=== PATIENT | female | born 1980 | race Caucasian/White ===

== ENCOUNTER 2024-05-28 23:27 | Outpatient (CLI) | payer BC, SELFPAY | END 2024-05-28 23:28 | disposition home or self-care (01) | LOC: AMB 06-01 04:19 | PROVIDERS: Visit Provider Internal Medicine | DX: R41.82 Altered mental status, unspecified (principal) | CPT/HCPCS: A0425; A0427 ==

== ENCOUNTER 2024-05-28 23:54 | Emergency (ER) | payer BC, SELFPAY ==
[2024-05-29] VITALS (15 sets, daily range): BP systolic 95–121; BP diastolic 52–74; PULSE 60–89; RESP 13–22; TEMP 36–37; O2SAT 88–99
[2024-05-29] MEDS: 0.9 % SODIUM CHLORIDE 1000 ml 1,000 ML IV (00:01)
--- NOTE | 2024-05-29 00:12 | CRLHL7_ITS ---
For Patients: As a result of the Cures Act, medical imaging exams and procedure reports are released immediately into your electronic medical record. You may view this report before your referring provider. If you have questions, please contact your health care provider. Indication: Altered mental status Technique: Noncontrast CT through the head with multiplanar reformats Comparison: None Findings: Brain: No acute hemorrhage. No acute infarct. No significant mass effect or midline shift. No gross evidence of a mass lesion or cerebral edema. Ventricles: No acute abnormality appreciated. Orbits, sinuses, mastoids: No acute abnormality appreciated. Calvarium and soft tissues: No acute abnormality appreciated. Impression: No acute abnormality appreciated. Please note that all CT scans at this facility use dose modulation, iterative reconstruction, and/or weight-based dosing when appropriate to reduce radiation dose to as low as reasonably achievable. Dictated by Jase Ochoa MD @ 05/29/2024 1:29:35 AM (Electronically Signed)
--- NOTE | 2024-05-29 00:20 | ED_ITS ---
HPI - Altered Mental Status General Chief Complaint: Altered Mental Status Stated Complaint: Syncope Time Seen by Provider: 05/29/24 00:12 Source: EMS Mode of arrival: EMS Limitations: altered mental status History of Present Illness HPI narrative: Patient is a 44-year-old female brought in by EMS for altered mental status. EMS was called to scene and they state when they arrived family was doing CPR because she was not responsive and they were concerned she was having a cardiac arrest. Patient was obtunded but was not in cardiac arrest. They are unsure how long they were doing CPR for. EMS states she was hypotensive for them but had a normal pulses and was satting well on room air. Blood sugar was 96 when they arrived. She was brought to the [facility] at this time and was given Narcan immediately. Her family then arrived and Her states she woke up from a cramping sensation in her legs. He states they were sleeping when he noticed she was nonresponsive. EMS states when they arrived the patient was being held up in the garage by family members who they described as amped up. They were not allowed to go into the house. They were told by a family hours the patient was having leg cramps earlier so she took some her tizanidine to help. Of note EMS states that his residence is the home of a gang member. Related Data Home Medications ?Medication ?Instructions ?Recorded ?Confirmed diazepam 10 mg tablet 10 mg PO DAILY PRN 05/29/24 05/29/24 duloxetine 30 mg capsule,delayed 60 mg PO DAILY 05/29/24 05/29/24 release (Cymbalta) gabapentin 300 mg capsule 900 mg PO TID 05/29/24 05/29/24 hydrochlorothiazide 25 mg tablet 12.5 mg PO DAILY 05/29/24 05/29/24 lamotrigine 100 mg tablet 100 mg PO DAILY 05/29/24 05/29/24 (Lamictal) quetiapine 200 mg tablet 200 mg PO QHS 05/29/24 05/29/24 tizanidine 2 mg capsule 2 mg PO TID PRN 05/29/24 05/29/24 tretinoin 0.1 % topical cream 1 applic topical QHS 05/29/24 05/29/24 (Retin-A) Allergies Allergy/AdvReac Type Severity Reaction Status Date / Time No Known Drug Allergies Allergy Verified 05/29/24 00:19 Review of Systems Status of ROS: Reports: unobtainable due to mental status PFSH [facility] Social History How often do you have a drink containing alcohol: never AUDIT-C Alcohol total score: 0 Non-prescribed substance use: marijuana (any form) Exam Narrative: Exam Narrative: Const: Well-nourished, Well-developed, somnolent Eyes: PERRL, no conjunctival injection, and symmetrical lids HENT: Atraumatic external nose and ears. Moist mucous membranes. No hemotympanum Neck: Symmetric, trachea midline, No thyromegaly. CVS: RRR, No murmurs or gallops. Peripheral pulses 2+ and equal in all extremities RESP: Unlabored respiratory effort. Clear to auscultation bilaterally. GI: Nontender/Nondistended, No rebound or guarding. MSK:Extremities w/o deformity, no tenderness to palpation noted throughout Skin: Warm, Dry. No rashes or lesions. Neuro: Normal Muscle tone, No focal neurological deficits but difficulty to fully determine neurological status as she is relatively somnolent and not following all commands. GCS 13 Psych: Somnolent but will wake up slightly when staff interactions her Const: Vital Signs, click to edit/add: Vital Signs - 24 hr 05/29/24 00:00 05/29/24 00:09 05/29/24 00:10 Temperature 96.8 F L Pulse Rate 68 Pulse Rate [Pulse Oximeter] 65 Respiratory Rate 14 20 22 Blood Pressure 95/55 L Blood Pressure [Le ft Upper Arm] 99/52 L Pulse Oximetry 93 95 Oxygen Delivery Me thod Room Air Oxygen Flow Rate 05/29/24 00:12 05/29/24 00:15 05/29/24 00:22 Temperature Pulse Rate 69 71 65 Pulse Rate [Pulse Oximeter] Respiratory Rate 20 13 17 Blood Pressure 98/58 L 108/67 Blood Pressure [Le ft Upper Arm] Pulse Oximetry 93 88 99 Oxygen Delivery Me thod Oxygen Flow Rate 1 05/29/24 00:23 05/29/24 00:28 05/29/24 00:30 Temperature Pulse Rate 62 60 Pulse Rate [Pulse Oximeter] Respiratory Rate 17 16 Blood Pressure Blood Pressure [Le ft Upper Arm] Pulse Oximetry 98 97 98 Oxygen Delivery Me thod Nasal Cannula Oxygen Flow Rate 1 05/29/24 00:30 05/29/24 00:34 05/29/24 00:45 Temperature Pulse Rate 64 Pulse Rate [Pulse Oximeter] 73 Respiratory Rate 14 14 Blood Pressure 110/74 Blood Pressure [Le ft Upper Arm] 121/69 Pulse Oximetry 94 98 Oxygen Delivery Me thod Room Air Oxygen Flow Rate 05/29/24 00:45 05/29/24 00:52 05/29/24 00:55 Temperature Pulse Rate 68 Pulse Rate [Pulse Oximeter] 67 Respiratory Rate 14 Blood Pressure 121/69 Blood Pressure [Le ft Upper Arm] 99/67 Pulse Oximetry 94 96 Oxygen Delivery Me thod Room Air Room Air Oxygen Flow Rate 05/29/24 01:00 05/29/24 05:56 Temperature 97.6 F Pulse Rate Pulse Rate [Pulse Oximeter] 72 81 Respiratory Rate 14 16 Blood Pressure Blood Pressure [Le ft Upper Arm] 115/71 110/62 Pulse Oximetry 94 96 Oxygen Delivery Me thod Room Air Room Air Oxygen Flow Rate Course Vital Signs Vital signs: Initial Vital Signs Temperature 96.8 F L 05/29/24 00:00 Temperature Source Temporal Artery Scan 05/29/24 00:00 Pulse Rate 65 05/29/24 00:00 Respiratory Rate 14 05/29/24 00:00 Blood Pressure 99/52 L 05/29/24 00:00 Blood Pressure Mean 67 L 05/29/24 00:00 Blood Pressure Position Supine 05/29/24 00:00 Pulse Oximetry 93 05/29/24 00:00 Oxygen Delivery Method Room Air 05/29/24 00:00 Vital Signs Temperature 96.8 F L 05/29/24 00:00 Pulse Rate 65 05/29/24 00:00 Respiratory Rate 14 05/29/24 00:00 Blood Pressure 99/52 L 05/29/24 00:00 Pulse Oximetry 93 05/29/24 00:00 Oxygen Delivery Method Room Air 05/29/24 00:00 Temperature 97.6 F 05/29/24 01:00 Pulse Rate 81 05/29/24 05:56 Respiratory Rate 16 05/29/24 05:56 Blood Pressure 110/62 05/29/24 05:56 Pulse Oximetry 96 05/29/24 05:56 Oxygen Delivery Method Room Air 05/29/24 05:56 Oxygen Flow Rate 1 05/29/24 00:28 Medications Administered Medications: Discontinued Medications Generic Name Dose Route Start Last Admin Trade Name Manish PRN Reason Stop Dose Admin Acetaminophen 1,000 mg 05/29/24 06:12 05/29/24 06:31 Acetaminophen 500 Mg Tablet PO 05/29/24 06:13 1,000 mg ONCE ONE Administration Sodium Chloride 1,000 mls @ 1,000 mls/hr 05/29/24 00:15 05/29/24 00:51 0.9 % Sodium Chloride 1000 Ml IV 05/29/24 01:14 Infused .Q1H SKY Infusion Naloxone HCl 0.4 mg 05/29/24 00:15 05/28/24 23:59 Naloxone 0.4 Mg/Ml Inj IVP 05/29/24 00:16 0.4 mg ONCE ONE Administration Naloxone HCl 0.4 mg 05/29/24 00:16 05/29/24 00:16 Naloxone 0.4 Mg/Ml Inj IVP 05/29/24 00:17 0.4 mg ONCE ONE Administration MDM - Altered Mental Status MDM Narrative Medical decision making narrative: Patient is a 44-year-old female presenting to the emergency department for altered mental status. When she 1st arrived she was hypotensive and was given a L of normal saline with a pressure bag. She received 700 mL of normal saline via EMS prior to arrival. She is also given Narcan immediately. After the Narcan she began to wake up more and was able to answer a couple questions but was still pretty sleepy. Point of care blood sugar in ED was 87. She was able to tell is that the soot on her right hand is from her incense. The soot appears more tarry than would be expected. She is also open her eyes by herself slightly and response to pain. Full exam was done showing no obvious signs of trauma at this time. She is finally stable at this time and will go for head CT. Wheeled do a broad workup including CBC, CMP, urinalysis, urine drug screen, magnesium. Patient did start desat slightly before CT scan and another dose of Narcan was g iven and she began to wake up even more. Lab work returned showing no concerning abnormalities. Her vital signs were improving after the 2nd dose of Narcan. EKG shows no concerning abnormalities. Urine drug screen shows tricyclic antidepressants, benzodiazepines, marijuana. She is prescribed these medications other than marijuana. Did not test positive for opioids but it is important to note that fentanyl can be a false negative. Lab work all returned showing no concerning abnormalities. She is more awake now starting at about 05:00. She is answering all questions appropriately but states she does not remember what happened at all. We continue to monitor her for a total of 7 hours and she is feeling much better at this time. She has all bit tired but is able to ambulate around the department without issue. I am unsure what caused this episode but do believe she is safe for discharge at this time to the care of her . She is agreeable to this plan. Lab Data Labs: Lab Results 05/29/24 05/29/24 05/29/24 Range/Units 00:00 00:00 00:12 WBC 6.99 (4.50-11.00) K/uL RBC 3.79 L (4.00-5.20) m/uL Hgb 10.6 L (12.0-16.0) gm/dL Hct 33.4 (33.0-51.0) % MCV 88 (80-100) fL MCH 28 (26-34) pg MCHC 32 (32-36) gm/dL RDW Coeff of Yan 13.8 (11.5-15.5) % Plt Count 196 (140-440) K/uL Neut % (Auto) 52.9 (42.0-72.0) % Lymph % (Auto) 36.2 (20-44) % [place] % (Auto) 9.2 (0.0-11.0) % Eos % (Auto) 0.7 (0.0-7.0) % Baso % (Auto) 0.3 (0.0-3.0) % Neut # (Auto) 3.70 (1.7-7.0) K/uL Lymph # (Auto) 2.53 (0.90-2.90) K/uL [place] # (Auto) 0.60 (0.00-0.90) K/UL Eos # (Auto) 0.05 (0.00-0.50) K/uL Baso # (Auto) 0.02 (0.00-0.30) K/uL Abs Immat Gran (auto) 0.05 (0.00-0.30) K/uL Imm/Tot Granulo (auto) 0.7 % VBG pH 7.35 (7.32-7.43) VBG pCO2 43 (40-50) mmHG VBG pO2 76.0 H (25-47) mmHG VBG HCO3 24 (21-28) mmol/L Sodium 135 (135-149) mmol/L Potassium 3.8 (3.6-5.1) mmol/L Chloride 107 (96-114) mmol/L Carbon Dioxide 24 (20-32) mmol/L Anion Gap 4 L (7-15) mEq/L BUN 24 (5-24) mg/dL Creatinine 1.1 (0.5-1.5) mg/dL Estimated GFR 64 ml/min Glucose 96 (60-115) mg/dL Calcium 8.3 L (8.4-10.6) mg/dL Magnesium 2.0 (1.5-2.6) mg/dL Total Bilirubin 0.3 (0.1-1.5) mg/dL AST 26 (12-35) U/L ALT 21 (4-35) U/L Alkaline Phosphatase 69 (40-150) U/L Ammonia 19.0 (13.1-30.0) umol/L Troponin I < 0.01 L (0.01-0.04) ng/mL Total Protein 5.8 L (6.0-8.3) g/dL Albumin 3.3 (3.3-5.0) g/dL TSH 0.909 (0.270-4.200) uIU/mL Urine Color Yellow (Yellow) Urine Appearance Clear (Clear) Urine pH 6.5 (5.0-8.5) Ur Specific [place] 1.020 (1.000-1.030) Urine Protein Negative (Negative) Urine Glucose (UA) Negative (Negative) Urine Ketones Negative (Negative) Urine Blood Negative (Negative) Urine Nitrite Negative (Negative) Urine Bilirubin Negative (Negative) Urine Urobilinogen 0.2 (0.2-1.0) Ur Leukocyte Esterase Negative (Negative) Urine RBC 0-2 (0-2) Urine WBC 2-5 (0-5) Ur Squamous Epith Cells Few (None-Few) Urine Bacteria None (None) Urine HCG, Qual Negative (Negative) Salicylates < 1.0 L (1.0-10) mg/dL Urine Opiates Screen Negative (Negative) Ur Oxycodone Screen Negative (Negative) Urine Methadone Screen Negative (Negative) Acetaminophen < 10.0 L (10.0-30.0) ug/mL Ur Barbiturates Screen Negative (Negative) U Tricyclic Antidepress POSITIVE A (Negative) Ur Phencyclidine Scrn Negative (Negative) Ur Amphetamines Screen Negative (Negative) U Methamphetamines Scrn Negative (Negative) U Benzodiazepines Scrn POSITIVE A (Negative) Urine Cocaine Screen Negative (Negative) U Marijuana (THC) Screen POSITIVE A (Negative) Ur Drug Screen Comment See Note Lab Acknowledgement Test Added Test Added Imaging Data CT scan - head: Attestation: I have reviewed the pertinent imaging results. Radiologist's impression: No acute abnormality appreciated. Please note that all CT scans at this facility use dose modulation, iterative reconstruction, and/or weight-based dosing when appropriate to reduce radiation dose to as low as reasonably achievable. Dictated by Jase Ochoa MD @ 05/29/2024 1:29:35 AM ECG Data Attestation: I personally reviewed and interpreted this ECG as follows: Prior ECG tracings: not available for review Interpretation: Normal sinus rhythm with rate 67 beats per minute, normal intervals, normal axis, no ST or T-wave abnormalities Discharge Plan Discharge Clinical Impression: Altered mental status Qualifiers: Altered mental status type: somnolence Qualified Code(s): R40.0 - Somnolence Patient Disposition: Home, Self-Care Condition: Improved Instructions: Altered Mental Status (ED) Additional Instructions: I have unsure what caused this episode but your lab work and head imaging all looks reassuring. Return to emergency department for new or worsening symptoms. Prescriptions: No Action quetiapine 200 mg tablet 200 mg PO QHS tizanidine 2 mg capsule 2 mg PO TID PRN hydrochlorothiazide 25 mg tablet 12.5 mg PO DAILY tretinoin [Retin-A] 0.1 % cream 1 applic topical QHS diazepam 10 mg tablet 10 mg PO DAILY PRN lamotrigine [Lamictal] 100 mg tablet 100 mg PO DAILY duloxetine [Cymbalta] 30 mg capsule,delayed release(DR/EC) 60 mg PO DAILY gabapentin 300 mg capsule 900 mg PO TID Follow Up/Referrals: Provider,Not a Local [Primary Care Provider] - Stand Alone Forms: [facility] Info Instructions
[2024-05-29 00:27] LABS: Basophils Absolute Auto 0.02 K/uL (0.00-0.30); Basophils Percent Auto 0.3 % (0.0-3.0); Eosinophils Absolute Auto 0.05 K/uL (0.00-0.50); Eosinophils Percent Auto 0.7 % (0.0-7.0); Hematocrit 33.4 % (33.0-51.0); Hemoglobin* 10.6 gm/dL (12.0-16.0); Immature Granulocytes Abs Auto 0.05 K/uL (0.00-0.30); Immature Granulocytes Pct Auto 0.7 %; Lymphocytes Absolute Auto 2.53 K/uL (0.90-2.90); Lymphocytes Percent Auto 36.2 % (20-44); Mean Corpuscular HGB Conc 32 gm/dL (32-36); Mean Corpuscular Hemoglobin 28 pg (26-34); Mean Corpuscular Volume 88 fL (80-100); Monocytes Percent Auto 9.2 % (0.0-11.0); Neutrophils Percent Auto 52.9 % (42.0-72.0); Platelet Count* 196 K/uL (140-440); RDW Coefficient of Variation % 13.8 % (11.5-15.5); Red Blood Count 3.79 m/uL (4.00-5.20); White Blood Count* 6.99 K/uL (4.50-11.00)
[2024-05-29 00:29] LABS: Appearance Urine Clear (Clear); Bilirubin Urine Negative (Negative); Blood Urine Negative (Negative); Color Urine Yellow (Yellow); Glucose Urine Negative (Negative); Ketones Urine Negative (Negative); Leukocyte Esterase Urine Negative (Negative); Nitrite Urine Negative (Negative); Protein Urine Negative (Negative); Urobilinogen Urine 0.2 (0.2-1.0); pH Urine 6.5 (5.0-8.5)
[2024-05-29 00:30] LABS: Amphetamine Screen Urine Negative (Negative); Barbiturate Screen Urine Negative (Negative); Benzodiazepines Screen Urine POSITIVE (Negative); Cannabinoid Screen Urine POSITIVE (Negative); Cocaine Screen Urine Negative (Negative); Methadone Screen Urine Negative (Negative); Methamphetamines Screen Urine Negative (Negative); Opiate Screen Urine Negative (Negative); Oxycodone Screen Urine Negative (Negative); Phencyclidine Screen Urine Negative (Negative); Tricyclic Antidepressant Urine POSITIVE (Negative)
[2024-05-29 00:37] LABS: Slide Review Reflex No
--- NOTE | 2024-05-29 00:39 | ED.NURSE ---
Tshirt and black sweatpants cut off on arrival. Gold jewelery (necklaces, bracelets, ring, earrings) removed and in labeled belongings cup. Given to patient's son for safekeeping. Patient did not arrive with any further belongings aside from prescription bottle for Tizanidine, #75 2mg tablets in bottle (prescribed 05/24/24, TID dosing). Family also in care of this prescription.
[2024-05-29 00:42] LABS: Albumin* 3.3 g/dL (3.3-5.0); Chloride* 107 mmol/L (96-114); Potassium* 3.8 mmol/L (3.6-5.1); Sodium* 135 mmol/L (135-149)
[2024-05-29 00:42] LABS: RBC Urine 0-2 (0-2); Squamous Epithelial Cell Urine Few (None-Few); Ur HCG Qualitative* Negative (Negative)
[2024-05-29 00:44] LABS: Bilirubin Total* 0.3 mg/dL (0.1-1.5); Creatinine* 1.1 mg/dL (0.5-1.5); Estimated Glomerular Filt Rate 64 ml/min
[2024-05-29 00:45] LABS: Alanine Aminotransferase* 21 U/L (4-35); Alkaline Phosphatase* 69 U/L (40-150); Anion Gap 4 mEq/L (7-15); Aspartate Amino Transferase* 26 U/L (12-35); Blood Urea Nitrogen* 24 mg/dL (5-24); Calcium* 8.3 mg/dL (8.4-10.6); Carbon Dioxide* 24 mmol/L (20-32); Glucose* 96 mg/dL (60-115); Total Protein* 5.8 g/dL (6.0-8.3)
[2024-05-29 01:01] LABS: Troponin I* < 0.01 ng/mL (0.01-0.04)
--- NOTE | 2024-05-29 01:45 | PC.NURSE ---
pt allowed to sleep. pt opens eyes to verbal but has difficulty keeping eyes open, staying awake. and son at bedside. EMS paged out and talking to physician to get more details re: call/scene.
[2024-05-29 01:52] LABS: Acetaminophen* < 10.0 ug/mL (10.0-30.0); Salicylate* < 1.0 mg/dL (1.0-10)
--- NOTE | 2024-05-29 02:16 | PC.NURSE ---
and son went home for the night, will call with any updates. Pt. continues to be oriented when woken up but difficult to keep awake and keep eyes open. Speech still slurred and difficult to make out at times. VSS, pt. does state she has some cramping in her legs which is not new.
[2024-05-29 03:46] LABS: HCO3 VBG 24 mmol/L (21-28); PCO2 VBG 43 mmHG (40-50); pH VBG 7.35 (7.32-7.43)
[2024-05-29 04:23] LABS: TSH With Reflex to FT4* 0.909 uIU/mL (0.270-4.200)
--- NOTE | 2024-05-29 05:13 | PC.NURSE ---
Pt woke up when came back. Pt states she remembers getting home from work last evening, made a yogurt parfait and drank part of a protein shake. Pt. states she took two of her muscle relaxers and went to bed. States she does smoke cannabis, denies other drug or alcohol use. Pt does not remember anything else from the night. Did not know she was in the hospital. Pt asking what happened to her. Pt. 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 She has 7 children (ages 9-19). Denies recent illness.
[2024-05-29] MEDS: ACETAMINOPHEN 500 MG TABLET 1000 MG PO (06:31)
== END 2024-05-29 06:55 | disposition home or self-care (01) ==
PROVIDERS: Emergency Provider Student in an Organized Health Care Education/Training Program
DX: R41.82 Altered mental status, unspecified (principal)
CPT/HCPCS: 36415; 70450; 80053; 80143; 80179; 80306; 81001; 81025; 82140; 82803; 83735; 84443; 84484; 85025; 93005; 96374; 96376; 99283; 99284; 99285; A9270; J2310; J7030

== ENCOUNTER 2024-07-25 19:55 | Emergency (ER) | payer BC, SELFPAY ==
[2024-07-25 19:57] VITALS: BP 178/103; PULSE 76; RESP 18; TEMP 37; O2SAT 100; BMI 28.3
[2024-07-25 19:59] LABS: Glucose, Point-of-Care* 122 mg/dl (60-115)
--- NOTE | 2024-07-25 20:59 | ED.GENADULT ---
HPI - General Adult General Time Seen by Provider: 20:59 Date Seen: 07/25/24 Chief complaint: Dizziness/Vertigo Stated complaint: Dizziness, nausea Time Seen by Provider: 07/25/24 20:58 Source: patient, RN notes reviewed and old records reviewed Mode of arrival: ambulatory Limitations: no limitations History of Present Illness HPI narrative: This 44yo female is coming in with vertigo and headache. She stated vertigo in her own words when I asked her what was bothering her today. She was driving home, started to have what she calls blurry vision and felt like she was spinning. She prefers to keep her eyes shut, prefers to be on her left side, rolling to the right makes it worse. She is hearing a ringing sensation in her right ear that will not go away. She also has a right-sided headache with this. She has a history of migraines remotely, has not had them for years. She had a gastric bypass about a year so ago. She did have hypertension prior to that but has been off medicines after the gastric bypass. Did review that her blood pressure is elevated here on arrival but she is also in the ER, having pain, having vertigo. This certainly could be affecting her blood pressure. She felt hot and nauseous once the symptoms started, is having ongoing nausea. Nursing staff did check a glucose in triage, was 122. She denies any chest symptoms with this, no chest pain. She notes no incoordination or weakness of arms or legs. She was seen in May for episode of altered mental status with no definitive etiology found. Urine toxicology was positive for tricyclic antidepressant, benzodiazepines, marijuana. I do believe the medicines that she has listed can account for some of these positives. Related Data Home Medications ?Medication ?Instructions ?Recorded ?Confirmed diazepam 10 mg tablet 10 mg PO DAILY PRN 05/29/24 05/29/24 duloxetine 30 mg capsule,delayed 60 mg PO DAILY 05/29/24 05/29/24 release (Cymbalta) gabapentin 300 mg capsule 900 mg PO TID 05/29/24 05/29/24 hydrochlorothiazide 25 mg tablet 12.5 mg PO DAILY 05/29/24 05/29/24 lamotrigine 100 mg tablet 100 mg PO DAILY 05/29/24 05/29/24 (Lamictal) quetiapine 200 mg tablet 200 mg PO QHS 05/29/24 05/29/24 tizanidine 2 mg capsule 2 mg PO TID PRN 05/29/24 05/29/24 tretinoin 0.1 % topical cream 1 applic topical QHS 05/29/24 05/29/24 (Retin-A) Allergies Allergy/AdvReac Type Severity Reaction Status Date / Time No Known Drug Allergies Allergy Verified 05/29/24 00:19 Review of Systems Status of ROS: Reports: 6 or more systems reviewed and unremarkable except as noted in History and below [facility] Social History Smoking Status: Never smoker Do you use any of these nicotine containing products: None Second hand tobacco smoke exposure: No How often do you have a drink containing alcohol: never AUDIT-C Alcohol total score: 0 Non-prescribed substance use: marijuana (any form) service: No Exam Const: Vital Signs, click to edit/add: Vital Signs - 24 hr 07/25/24 19:57 Temperature 98.6 F Pulse Rate [Pulse Oximeter] 76 Respiratory Rate 18 Blood Pressure [Ri ght Upper Arm] 178/103 H Pulse Oximetry 100 Oxygen Delivery Me thod Room Air This 44-year-old female is lying on her left side, has covers over her head and lights off in her room. She does allow me to take down the covers, she will open her eyes for me. Pupils are equal round reactive, extraocular muscles intact but there is definite right beating nystagmus that does not attenuate. She baseline has a conjugate gaze. Symmetrical facial function, speech is normal. TMs canals are normal but she does note tinnitus or ringing in her right ear. Neck supple, no masses, no adenopathy. Lungs are clear, good air entry, no wheezing or crackles. CV regular rate and rhythm, no murmur, normal S1-S2, no S3-S4. Abdomen is soft, nontender, nondistended, no masses organomegaly. Strength is 5/5 and symmetric in her upper extremities and lower extremities. Normal light touch sensation. No tremors. Did not have patient ambulate due to her symptoms. Documenting provider has reviewed patient's vital signs: yes Course Course ED Course: Reviewed with patient that this certainly seems like it could be peripheral vertigo but will talk to Neurology to see if they want neuro imaging. We will start with oral Valium to help with her symptoms. This certainly could be peripheral vertigo, Meniere's episode initial for this patient, possible migraine headache with vertiginous symptoms, possible stroke as her blood pressure is elevated. We will see what Neurology has to say, order neuro imaging with CT of her head and CT angiogram of her head neck if they recommend it. Will also do appropriate labs. Reevaluation(s) Time of Reevaluation #1: 21:42 Reevaluation #1: Reviewed with patient the neurologist is recommending neuro imaging to rule out the possibility of stroke. She is asking for Tylenol, is also feeling nauseated. Reviewed with her that were going to have to place an IV, will give her small dose of IV Ativan and some Zofran to help with her symptoms. Will just use 0.5 mg IV Ativan to help with the vertigo and nausea, this should not to be too high of a does, want to be mindful as I have already given her 5 mg oral Valium. Will also get her some Tylenol. It is possible that this could be migraine equivalent with some vertigo with it. In any event, will try to control her symptoms, get neuro imaging done. Time of Reevaluation #2: 22:50 Reevaluation #2: Patient was checked on, am still awaiting her head imaging to be read. She notes she is feeling better as far as her vertigo symptoms. Still has some headache. Will give her Toradol if head CT is not showing any concerning change. Time of Reevaluation #3: 23:42 Reevaluation #3: Patient is requesting to leave, symptoms improved. Did order Toradol after head CT was read as negative. Head imaging and labs are not showing anything concerning. Will plan to discharge home at this time for further outpatient observation and follow up if needed. Consultations Consultation #1: Did review case with Dr. Sawyer stroke neurology steward/stewardess second, he did recommend doing neuro imaging of her head with CT-CT angiogram given the vertigo with her elevated blood pressure. Time: 21:29 Vital Signs Vital signs: Initial Vital Signs Temperature 98.6 F 07/25/24 19:57 Temperature Source Temporal Artery Scan 07/25/24 19:57 Pulse Rate 76 07/25/24 19:57 Respiratory Rate 18 07/25/24 19:57 Blood Pressure 178/103 H 07/25/24 19:57 Blood Pressure Mean 128 H 07/25/24 19:57 Pulse Oximetry 100 07/25/24 19:57 Oxygen Delivery Method Room Air 07/25/24 19:57 Vital Signs Temperature 98.6 F 07/25/24 19:57 Pulse Rate 76 07/25/24 19:57 Respiratory Rate 18 07/25/24 19:57 Blood Pressure 178/103 H 07/25/24 19:57 Pulse Oximetry 100 07/25/24 19:57 Oxygen Delivery Method Room Air 07/25/24 19:57 Temperature 98.6 F 07/25/24 19:57 Pulse Rate 76 07/25/24 19:57 Respiratory Rate 18 07/25/24 19:57 Blood Pressure 178/103 H 07/25/24 19:57 Pulse Oximetry 100 07/25/24 19:57 Oxygen Delivery Method Room Air 07/25/24 19:57 Medications Administered Medications: Discontinued Medications Generic Name Dose Route Start Last Admin Trade Name Manish PRN Reason Stop Dose Admin Acetaminophen 1,000 mg 07/25/24 21:42 07/25/24 22:06 Acetaminophen 500 Mg Tablet PO 07/25/24 21:43 1,000 mg ONCE ONE Administration Diazepam 5 mg 07/25/24 21:12 07/25/24 21:20 Diazepam 5 Mg Tablet PO 07/25/24 21:13 5 mg ONCE ONE Administration Lorazepam 0.5 mg 07/25/24 21:42 07/25/24 22:07 Lorazepam 2 Mg/Ml Inj IVP 07/25/24 21:43 0.5 mg ONCE ONE Administration Meclizine HCl 25 mg 07/25/24 21:39 07/25/24 22:06 Meclizine Hcl 25 Mg Tablet PO 07/25/24 21:40 25 mg ONCE ONE Administration Ondansetron HCl 4 mg 07/25/24 21:42 07/25/24 22:07 Ondansetron 2 Mg/Ml Inj IVP 07/25/24 21:43 4 mg ONCE ONE Administration Medical Decision Making Lab Data Lab results reviewed: Yes I reviewed the patient's lab results Labs: Lab Results 07/25/24 07/25/24 Range/Units 19:59 21: WBC 6.20 (4.50-11.00) K/uL RBC 4.07 (4.00-5.20) m/uL Hgb 11.4 L (12.0-16.0) gm/dL Hct 36.2 (33.0-51.0) % MCV 89 (80-100) fL MCH 28 (26-34) pg MCHC 32 (32-36) gm/dL RDW Coeff of Yan 14.0 (11.5-15.5) % Plt Count 195 (140-440) K/uL Neut % (Auto) 51.5 (42.0-72.0) % Lymph % (Auto) 36.8 (20-44) % Butts % (Auto) 9.8 (0.0-11.0) % Eos % (Auto) 1.3 (0.0-7.0) % Baso % (Auto) 0.6 (0.0-3.0) % Neut # (Auto) 3.19 (1.7-7.0) K/uL Lymph # (Auto) 2.28 (0.90-2.90) K/uL Butts # (Auto) 0.60 (0.00-0.90) K/UL Eos # (Auto) 0.08 (0.00-0.50) K/uL Baso # (Auto) 0.04 (0.00-0.30) K/uL Abs Immat Gran (auto) 0.00 (0.00-0.30) K/uL Imm/Tot Granulo (auto) 0.0 % Sodium 137 (135-149) mmol/L Potassium 3.7 (3.6-5.1) mmol/L Chloride 104 (96-114) mmol/L Carbon Dioxide 25 (20-32) mmol/L Anion Gap 8 (7-15) mEq/L BUN 17 (5-24) mg/dL Creatinine 1.0 (0.5-1.5) mg/dL Estimated Creat Clear 64.60 Estimated GFR 71 ml/min Glucose 74 (60-115) mg/dL Calcium 8.9 (8.4-10.6) mg/dL Magnesium 2.4 (1.5-2.6) mg/dL Total Bilirubin 0.3 (0.1-1.5) mg/dL AST 26 (12-35) U/L ALT 24 (4-35) U/L Alkaline Phosphatase 77 (40-150) U/L Total Protein 6.7 (6.0-8.3) g/dL Albumin 4.0 (3.3-5.0) g/dL POC Glucose 122 H (60-115) mg/dl Imaging Data CT scan - head: Attestation: I have reviewed the pertinent imaging results. Radiologist's impression: Patient: CRISTAL BUTT Facility:?[facility] Patient ID:?[id number] Site Patient ID:?[id number]. Site :?[id number] Study:?CT-Head WO-07/25/2024 10:47:47 PM Ordering Physician:Bulmaro Castillo Final Report: INDICATION: Vertigo. TECHNIQUE: CT head without contrast. COMPARISON: CT head 05/29/2024. FINDINGS: No acute intracranial hemorrhage. No CT evidence of recent territorial infarct. No hydrocephalus or midline shift. Cerebral parenchymal volume is within normal limits. Visualized paranasal sinuses and mastoid air cells are well ventilated. No acute calvarial abnormality. IMPRESSION: No acute intracranial abnormality. No change compared to prior CT head. Please note that all CT scans at this facility use dose modulation, iterative reconstruction, and/or weight-based dosing when appropriate to reduce radiation dose to as low as reasonably achievable. Dictated by Odin Fitzgerald MD @ 07/25/2024 11:28:31 PM (Electronic Signature) CT- Other: Attestation: I have reviewed the pertinent imaging results. Radiologist's impression: Patient: CRISTAL BUTT Facility:?[facility] Patient ID:?[id number] Site Patient ID:?[id number]. Site :?[id number] Study:?CT-Head Angio Angio CTA HEAD AND NECK WITH ISOVUE 37-07/25/2024 10:48:50 PM Ordering Physician:?Yuri Castillo Preliminary Report: PRELIMINARY FINDINGS/IMPRESSION: No large vessel occlusion or significant vascular stenosis within the head or neck. No aneurysm identified. No acute or suspicious soft tissue or osseous abnormality. Read by:?Odin Fitzgerald MD @07/25/2024 11:34:30 PM Discharge Plan Discharge Clinical Impression: Vertigo Headache Qualifiers: Headache type: unspecified Headache chronicity pattern: acute headache Intractability: not intractable Qualified Code(s): R51.9 - Headache, unspecified Patient Disposition: Home, Self-Care Condition: Stable Instructions: Vertigo (ED), Acute Headache (ED) Additional Instructions: I do wonder if your headache tonight might have been a migraine with vertigo. If you have ongoing vertigo symptoms, can get meclizine which is [id number], take 25 mg 3 times a day as needed. Do recommend going home to rest tonight. It is important to drink adequate fluids, being dehydrated or not drinking enough fluids can make headaches worse. Can use Tylenol and/or ibuprofen per bottle directions for any residual headache symptoms. Follow up in clinic with her primary care provider for ongoing concerns or issues, can always return to the ER if significant or emergent concerns. Activity Level: No Restrictions Prescriptions: No Action quetiapine 200 mg tablet 200 mg PO QHS tizanidine 2 mg capsule 2 mg PO TID PRN hydrochlorothiazide 25 mg tablet 12.5 mg PO DAILY tretinoin [Retin-A] 0.1 % cream 1 applic topical QHS diazepam 10 mg tablet 10 mg PO DAILY PRN lamotrigine [Lamictal] 100 mg tablet 100 mg PO DAILY duloxetine [Cymbalta] 30 mg capsule,delayed release(DR/EC) 60 mg PO DAILY gabapentin 300 mg capsule 900 mg PO TID Follow Up/Referrals: Provider,Not a Local [Non-Staff] - Stand Alone Forms: [employer] Info Instructions
[2024-07-25] MEDS: diazePAM 5 MG TABLET PO (21:20)
[2024-07-25 21:32] LABS: Basophils Absolute Auto 0.04 K/uL (0.00-0.30); Basophils Percent Auto 0.6 % (0.0-3.0); Eosinophils Absolute Auto 0.08 K/uL (0.00-0.50); Eosinophils Percent Auto 1.3 % (0.0-7.0); Hematocrit 36.2 % (33.0-51.0); Hemoglobin* 11.4 gm/dL (12.0-16.0); Lymphocytes Absolute Auto 2.28 K/uL (0.90-2.90); Lymphocytes Percent Auto 36.8 % (20-44); Mean Corpuscular HGB Conc 32 gm/dL (32-36); Mean Corpuscular Hemoglobin 28 pg (26-34); Mean Corpuscular Volume 89 fL (80-100); Monocytes Percent Auto 9.8 % (0.0-11.0); Neutrophils Absolute Auto 3.19 K/uL (1.7-7.0); Neutrophils Percent Auto 51.5 % (42.0-72.0); Platelet Count* 195 K/uL (140-440); Red Blood Count 4.07 m/uL (4.00-5.20)
--- NOTE | 2024-07-25 21:32 | CRLHL7_ITS ---
For Patients: As a result of the Century Cures Act, medical imaging exams and procedure reports are released immediately into your electronic medical record. You may view this report before your referring provider. If you have questions, please contact your health care provider. INDICATION: Vertigo. TECHNIQUE: CT head without contrast. COMPARISON: CT head 05/29/2024. FINDINGS: No acute intracranial hemorrhage. No CT evidence of recent territorial infarct. No hydrocephalus or midline shift. Cerebral parenchymal volume is within normal limits. Visualized paranasal sinuses and mastoid air cells are well ventilated. No acute calvarial abnormality. IMPRESSION: No acute intracranial abnormality. No change compared to prior CT head. Please note that all CT scans at this facility use dose modulation, iterative reconstruction, and/or weight-based dosing when appropriate to reduce radiation dose to as low as reasonably achievable. Dictated by Odin Fitzgerald MD @ 07/25/2024 11:28:31 PM (Electronically Signed)
--- NOTE | 2024-07-25 21:32 | CRLHL7_ITS ---
For Patients: As a result of the Century Cures Act, medical imaging exams and procedure reports are released immediately into your electronic medical record. You may view this report before your referring provider. If you have questions, please contact your health care provider. INDICATION: Vertigo. TECHNIQUE: CTA neck with contrast bolus tracking, 3D angiographic rendering using maximum intensity projection (MIP) and images permanently archived. FINDINGS: There is a corrugated appearance to the internal carotid arteries, consistent with fibromuscular dysplasia. There is no significant carotid artery stenosis or dissection. The vertebral arteries are markedly tortuous. There is no significant vertebral artery stenosis or dissection. The soft tissues of the neck are within normal limits. The cervical spine is in normal alignment. IMPRESSION: 1. Fibromuscular dysplasia as described. 2. No significant carotid or vertebral artery stenosis or dissection. Please note that all CT scans at this facility use dose modulation, iterative reconstruction, and/or weight-based dosing when appropriate to reduce radiation dose to as low as reasonably achievable. Dictated by Ruddy Narvaez MD @ 07/26/2024 6:35:50 AM (Electronically Signed)
--- NOTE | 2024-07-25 21:32 | CRLHL7_ITS ---
For Patients: As a result of the Century Cures Act, medical imaging exams and procedure reports are released immediately into your electronic medical record. You may view this report before your referring provider. If you have questions, please contact your health care provider. INDICATION: Vertigo. TECHNIQUE: CTA head with contrast bolus tracking, 3D angiographic rendering using maximum intensity projection (MIP) and images permanently archived. FINDINGS: There is normal opacification of the intracranial vasculature. There is no large vessel occlusion. No aneurysm is identified. IMPRESSION: Unremarkable head CTA. Please note that all CT scans at this facility use dose modulation, iterative reconstruction, and/or weight-based dosing when appropriate to reduce radiation dose to as low as reasonably achievable. Dictated by Ruddy Narvaez MD @ 07/26/2024 6:33:28 AM (Electronically Signed)
[2024-07-25 21:41] LABS: Slide Review Reflex No
[2024-07-25 21:46] LABS: Chloride* 104 mmol/L (96-114)
[2024-07-25 21:47] LABS: Potassium* 3.7 mmol/L (3.6-5.1); Sodium* 137 mmol/L (135-149)
[2024-07-25 21:49] LABS: Anion Gap 8 mEq/L (7-15); Aspartate Amino Transferase* 26 U/L (12-35); Bilirubin Total* 0.3 mg/dL (0.1-1.5); Blood Urea Nitrogen* 17 mg/dL (5-24); Carbon Dioxide* 25 mmol/L (20-32); Estimated Glomerular Filt Rate 71 ml/min; Total Protein* 6.7 g/dL (6.0-8.3)
[2024-07-25 21:50] LABS: Alanine Aminotransferase* 24 U/L (4-35); Alkaline Phosphatase* 77 U/L (40-150); Calcium* 8.9 mg/dL (8.4-10.6); Glucose* 74 mg/dL (60-115); Magnesium* 2.4 mg/dL (1.5-2.6)
[2024-07-25] MEDS: ACETAMINOPHEN 500 MG TABLET 1000 MG PO (22:06)
[2024-07-25] MEDS: MECLIZINE HCL 25 MG TABLET PO (22:06)
[2024-07-25] MEDS: LORazepam 2 MG/ML inj 0.5 MG IVP (22:07)
[2024-07-25] MEDS: ONDANSETRON 2 MG/ML inj 4 MG IVP (22:07)
[2024-07-25] MEDS: KETOROLAC 15 MG/ML inj IVP (23:36)
--- NOTE | 2024-08-14 11:24 | W.ED.CHARTNO ---
ED Chart Note Chart Note Details Date: 08/14/24 Details: Dear Lucita, I am writing to you in regards to your CT angiography done on July 25. The formal radiology reading is showing a condition called fibromuscular dysplasia of the internal carotid arteries. This can be a stroke risk factor for you in the future. It is also possible that this condition can affect other arteries such as renal artery fibromuscular dysplasia. Please bring this letter and report of your angiography to your primary care provider. I do recommend that they send you to a specialist that can further evaluate and advise you on any possible management. Sincerely, Anna Welch MD
== END 2024-07-25 23:54 | disposition home or self-care (01) ==
PROVIDERS: Emergency Provider Family Medicine; PCP Family Medicine
DX: R51.9 Headache, unspecified (principal)
CPT/HCPCS: 36415; 70450; 70496; 70498; 80053; 82947; 83735; 84443; 85025; 96374; 96375; 99284; A9270; J1885; J2060; J2405; Q9967

== ENCOUNTER 2024-08-17 18:09 | Emergency (ER) | payer BC, SELFPAY ==
--- NOTE | 2024-08-17 18:13 | ED_ITS ---
HPI - General Adult General Chief complaint: Headache/Migraine Stated complaint: Migraine Time Seen by Provider: 08/17/24 18:13 Source: patient, RN notes reviewed and old records reviewed Mode of arrival: ambulatory Limitations: no limitations History of Present Illness HPI narrative: 44-year-old female who presents today with headache. She says that she has had a headache for for 3 days. Note the patient was seen in this emergency department July 25 for headache, that time CT/CTA was done which was negative for acute findings but did find findings for possible fibromuscular dysplasia. Patient complains of pain in the right side of the head in the right mandaeism, nausea, photophobia. Denies chest pain or shortness of breath. Took Imitrex, ibuprofen, Tylenol at home. Denies head injury, fever. Related Data Home Medications ?Medication ?Instructions ?Recorded ?Confirmed diazepam 10 mg tablet 10 mg PO DAILY PRN 05/29/24 05/29/24 duloxetine 30 mg capsule,delayed 60 mg PO DAILY 05/29/24 05/29/24 release (Cymbalta) gabapentin 300 mg capsule 900 mg PO TID 05/29/24 05/29/24 hydrochlorothiazide 25 mg tablet 12.5 mg PO DAILY 05/29/24 05/29/24 lamotrigine 100 mg tablet 100 mg PO DAILY 05/29/24 05/29/24 (Lamictal) quetiapine 200 mg tablet 200 mg PO QHS 05/29/24 05/29/24 tizanidine 2 mg capsule 2 mg PO TID PRN 05/29/24 05/29/24 tretinoin 0.1 % topical cream 1 applic topical QHS 05/29/24 05/29/24 (Retin-A) Allergies Allergy/AdvReac Type Severity Reaction Status Date / Time No Known Drug Allergies Allergy Verified 08/17/24 18:17 [facility] Social History Smoking Status: Never smoker Do you use any of these nicotine containing products: Vaping Products Second hand tobacco smoke exposure: No How often do you have a drink containing alcohol: never AUDIT-C Alcohol total score: 0 Non-prescribed substance use: marijuana (any form) service: No Exam Narrative: Exam Narrative: General: Well-developed and well-nourished, appears uncomfortable, tearful Head: Atraumatic and normocephalic Eyes: Pupils are equal reactive, extraocular motions intact, conjunctiva clear ENT: External nose and ears are normal, posterior pharynx without erythema or exudate Neck: No midline cervical tenderness, full spontaneous range of motion the neck, trachea midline, no adenopathy Heart: Regular rate and rhythm no murmurs or thrills Lungs: Clear to auscultation bilaterally without wheezes or crackles Abdomen: Soft, nontender, nondistended with active bowel sounds Musculoskeletal: No tenderness, deformity, or edema Neurologic: Awake, alert, and oriented x3, no gross focal neurologic deficits, cranial nerves intact as tested Psych: Mood and affect are appropriate Skin: No rashes Const: Vital Signs, click to edit/add: Vital Signs - 24 hr 08/17/24 18:17 08/17/24 18:59 08/17/24 19:22 Temperature 98.4 F Pulse Rate [Pulse Oximeter] 63 68 61 Respiratory Rate 22 20 20 Blood Pressure [Ri ght Upper Arm] 173/113 H 149/83 H 158/99 H Pulse Oximetry 99 97 97 Oxygen Delivery Me thod Room Air Room Air Room Air Course Course ED Course: Patient seen examined, presents today with headache. Reviewed prior record from July 28 when patient was seen with headache as well, at that time negative intracranial imaging. On arrival to the emergency department while checking in, patient lowered herself to the ground, no head injury. On exam here, no focal n eurologic deficits, appears uncomfortable. Labs ordered, given recent negative intracranial imaging and history of similar headache along with no history of trauma, no indication for imaging at this time. EKG independently interpreted by me performed at 6:21 p.m. demonstrates sinus rhythm rate 62, no acute ST elevations or depressions, normal intervals, normal axis, QTC 424, NC 174. No prior for comparison. Reevaluation(s) Time of Reevaluation #1: 19:02 Reevaluation #1: Patient recheck, still complaining of head pain although appears much more comfortable. Imitrex is ordered. Time of Reevaluation #2: 20:08 Reevaluation #2: Patient recheck, she is feeling better and is agreeable to discharge. Vital Signs Vital signs: Initial Vital Signs Temperature 98.4 F 08/17/24 18:17 Temperature Source Temporal Artery Scan 08/17/24 18:17 Pulse Rate 63 08/17/24 18:17 Respiratory Rate 22 08/17/24 18:17 Blood Pressure 173/113 H 08/17/24 18:17 Blood Pressure Mean 133 H 08/17/24 18:17 Blood Pressure Position Supine 08/17/24 18:17 Pulse Oximetry 99 08/17/24 18:17 Oxygen Delivery Method Room Air 08/17/24 18:17 Vital Signs Temperature 98.4 F 08/17/24 18:17 Pulse Rate 63 08/17/24 18:17 Respiratory Rate 22 08/17/24 18:17 Blood Pressure 173/113 H 08/17/24 18:17 Pulse Oximetry 99 08/17/24 18:17 Oxygen Delivery Method Room Air 08/17/24 18:17 Temperature 98.4 F 08/17/24 18:17 Pulse Rate 61 08/17/24 19:22 Respiratory Rate 20 08/17/24 19:22 Blood Pressure 158/99 H 08/17/24 19:22 Pulse Oximetry 97 08/17/24 19:22 Oxygen Delivery Method Room Air 08/17/24 19:22 Medications Administered Medications: Generic Name Dose Route Start Last Admin Trade Name Freq PRN Reason Stop Dose Admin Sumatriptan Succinate 6 mg 08/17/24 19:04 08/17/24 19:27 Sumatriptan 6 Mg/0.5 Ml Inj SUBCUT 08/17/24 19:05 6 mg ONCE ONE Administration Discontinued Medications Generic Name Dose Route Start Last Admin Trade Name Freq PRN Reason Stop Dose Admin Dexamethasone 10 mg 08/17/24 18:21 08/17/24 18:32 Dexamethasone 10 Mg/Ml Inj IVP 08/17/24 18:22 10 mg ONCE ONE Administration Diphenhydramine HCl 25 mg 08/17/24 18:21 08/17/24 18:32 Diphenhydramine 50 Mg/Ml Inj IVP 08/17/24 18:22 25 mg ONCE ONE Administration Ketorolac Tromethamine 15 mg 08/17/24 18:21 08/17/24 18:32 Ketorolac 15 Mg/Ml Inj IVP 08/17/24 18:22 15 mg ONCE ONE Administration Prochlorperazine 10 mg 08/17/24 18:21 08/17/24 18:33 Prochlorperazine 5 Mg/Ml Vial IV 08/17/24 18:22 10 mg ONCE ONE Administration Discharge Plan Discharge Clinical Impression: Recurrent headache Instructions: General Headache (ED) Activity Level: Activity as Tolerated Discharge Diet: Regular Prescriptions: No Action quetiapine 200 mg tablet 200 mg PO QHS tizanidine 2 mg capsule 2 mg PO TID PRN hydrochlorothiazide 25 mg tablet 12.5 mg PO DAILY tretinoin [Retin-A] 0.1 % cream 1 applic topical QHS diazepam 10 mg tablet 10 mg PO DAILY PRN lamotrigine [Lamictal] 100 mg tablet 100 mg PO DAILY duloxetine [Cymbalta] 30 mg capsule,delayed release(DR/EC) 60 mg PO DAILY gabapentin 300 mg capsule 900 mg PO TID Follow Up/Referrals: Venkat Hall MD [Primary Care Provider] - Stand Alone [facility]: [facility] Info Instructions
[2024-08-17 18:17] VITALS: BP 173/113; PULSE 63; RESP 22; TEMP 36.9; O2SAT 99
[2024-08-17] MEDS: KETOROLAC 15 MG/ML inj IVP (18:32)
[2024-08-17] MEDS: dexAMETHasone 10 MG/ML inj IVP (18:32)
[2024-08-17] MEDS: diphenhydrAMINE 50 MG/ML inj 25 MG IVP (18:32)
[2024-08-17] MEDS: PROCHLORPERAZINE 5 MG/ML VIAL 10 MG IV (18:33)
[2024-08-17 18:59] VITALS: BP 149/83; PULSE 68; RESP 20; O2SAT 97
[2024-08-17 19:22] VITALS: BP 158/99; PULSE 61; RESP 20; O2SAT 97
[2024-08-17] MEDS: SUMAtriptan 6 MG/0.5 ML INJ SUBCUT (19:27)
[2024-08-17 20:21] VITALS: PULSE 61; RESP 20; O2SAT 99
== END 2024-08-17 20:26 | disposition home or self-care (01) ==
PROVIDERS: Emergency Provider Family Medicine; PCP Family Medicine
DX: R51.9 Headache, unspecified (principal)
CPT/HCPCS: 96374; 96375; 99284; J0780; J1100; J1200; J1885; J3030

== ENCOUNTER 2025-01-05 07:55 | Emergency (ER) | payer OTHER, SELFPAY ==
--- OUTSIDE RECORDS SUMMARY | 2025-01-05 07:57 | XMS_ITS | Encounter Summary ---
Author Organization [facility] Address [address] [place] [address] Care Team Providers Care Joint Cutter Machine Name Role Phone Venkat Hall M.D. Primary Care Provider Reason for Visit * Reason Onset Date Comments Med Refill 12/14/2024 Encounter Details Date Type Department Care Team (Late st Contact Info) Description 12/14/2024 Refill Department of Family Medicine, [facility], in [place], [place] [address] [place] [phone] Venkat Hall M.D. [address] [place] [phone] Med Refill Social History Tobacco Use Types Packs/Day Years Used Date Smoking Tobacco: Former Cigarettes 1 11/05/2007 - 06/05/2021 Smokeless Tobacco: Never Comments:Never smoked heavil y or even daily. Alcohol Use Standard Drinks/Week Comments Never 0 (1 standard drink = 0.6 oz pur e alcohol) does not drink at all [facility] Utilities Answer Date Recorded In the past 12 months has e electric, gas, oil, or water company threatened to shut off services in your home? No 05/19/2024 Humiliation, Afraid, Rape, and Kick questionnair e Answer Date Recorded Within the last year, have y ou been afraid of your partner or ex-partner? No 03/04/2023 Within the last year, have y ou been humiliated or emotionally abused in other ways by your partner or ex-partner? No Within the last year, have y ou been kicked, hit, slapped, or otherwise physically hurt by your partner or ex-partner? No 03/04/2023 Within the last year, have y ou been raped or forced to have any kind of sexual activity by your partner or ex-partner? No 03/04/2023 Social Connection and Isolation Panel [NHANES] A nswer Date Recorded In a typical week, how many times do you talk on the phone with family, friends, or neighbors? Three times a week 02/04/20 How often do you get togethe r with friends or relatives? Patient declined 02/03/2023 How often do you attend chur ch or yazdanism services? 1 to 4 times per year 02/03/2023 Do you belong to any clubs o r organizations such as scientology groups, unions, fraternal or athletic groups, or school groups? No 02/03/2023 How often do you attend meet ings of the clubs or organizations you belong to? Patient declined 02/03/2023 Are you , , di vorced, , never , or living with a partner? 02/03/2023 AUDIT-C Answer Date Recorded Q1: How often do you have a drink containing alc ohol? Never 02/03/2023 Average Number of Drinks Not on file 023 Frequency of Binge Drinking Not on file 11/2022 Overall Financial Resource Strain (CARDIA) Answe r Date Recorded How hard is it for you to pa y for the very basics like food, housing, medical care, and heating? Not very hard 03/04/2023 PHQ-2 Answer Date Recorded PHQ-2 Score 2 12/15/2024 [facility] [place] [facility] - Occupational Stress Questionnaire Answer Date Recorded Do you feel stress - tense, restless, nervous, or anxious, or unable to sleep at night because your mind is troubled all the time - these days? Only a little 02/03/2023 Exercise Vital Sign Answer Date Recorde d On average, how many days pe r week do you engage in moderate to strenuous exercise (like a brisk walk)? 3 days 05/19/2024 On average, how many minutes do you engage in exercise at this level? 30 min 05/19/2024 Hunger Vital Sign Answer Date Recorded Within the past 12 months, y ou worried that your food would run out before you got the money to buy more. Never true 05/19/20 24 Within the past 12 months, t he food you bought just didn't last and you didn't have money to get more. Never true 05/19/2024 PRAPARE - Transportation Answer Date Re corded In the past 12 months, has l ack of transportation kept you from medical appointments or from getting medications? No 05/05 In the past 12 months, has l ack of transportation kept you from meetings, work, or from getting things needed for daily living? No 05/19/2024 Depression Answer Date Recor ded PHQ-9 Total Score (max 27) 8 05/23 Nutrition Answer Date Recorded On average, how many serving s of fruits and vegetables do you eat per day (serving size is equal to 1 cup or approximately the size of a tennis ball)? 3-5 05/19/2024 Dental Answer Date Recorded Dental: Regular Dentist Yes 06/20/20 Employment Answer Date Recorded Employment status Employed and actively working without restrictions 05/19/2024 Housing Stability Answer Date Recorded What is your living situation today? I have a [facility] place to live 05/19/2024 Education Answer Date Recorded What is the highest level of school you have completed or the highest degree you have received? Associate degree: occupational, technical, or vocational program 02/03/2023 Comments No Sex and Gender Information Value Date Recorded Sex Assigned at Female 05/31/2021 4:29 AM CDT Legal Sex Female 11:05 AM STATISTICAL PROGRAMMER Gender Identity Female 11/08/2020 5:40 PM STATISTICAL PROGRAMMER Sexual Orientation Straight 11/08/2020 5: 40 PM STATISTICAL PROGRAMMER documented as of this encounter Miscellaneous Notes * Addendum Note - Dionne Brooks, L.P.N. - 12/16/2024 1:41 PM CDTAddended by: DIONNE BROOKS on: 12/16/2024 01:41 PM Modules accepted: Orders * Telephone Encounter - Luzma Zapata - 12/14/2024 2:30 PM CDT Needs Review: Med Refill Team is unable to forward request to provider. Discrepancy; Patient taking Differently NOTE OTHER RXs HAVE BEEN REVIEWED AND VERIFIED FOR REFILL* Primary Provider: Venkat Hall M.D. Requested Prescriptions Pending Prescriptions Disp Refills hydroCHLOROthiazide (HydroDiuril) 25 mg tablet 90 tablet 3 Sig: Take 1 tablet (25 mg total) by mouth daily. documented in this encounter Plan of Treatment Not on file documented as of this encounter Visit Diagnoses Not on filedocumented in this encounter Additional Health Concerns Assessment Noted Time PHQ-9 Depression Total Score: 8 05/23/20 24 1:28 PM CDT documented as of this encounter Care Teams Joint Cutter Machine Relationship Specialty Start Date End Date Venkat Hall M.D. [address] [place] [phone] PCP - General Family Medicine 04/14/24 documented as of this encounter
--- OUTSIDE RECORDS SUMMARY | 2025-01-05 07:57 | XMS_ITS | Clinical Summary ---
Author Organization [facility] Address [address] [place] [address] Care Team Providers Care Bath Steward/Stewardess Name Role Phone Venkat Hall M.D. Primary Care Provider Source Comments Patient records contain information from all sites at [facility]. For routine questions regarding patient records, call [phone] during business hours, M-F 8:00 AM - 5:00 PM Central Time. Record requests for emergency care only can be directed to [phone] at any time.[facility] Allergies No known active allergies Medications * This document contains information received from the source organization and may not represent a complete record from that organization. levonorgestre L (MIRENA) 20 mcg/24 hours (6 yrs) 52 mg IUD 1 each by intrauterine route continuously. Active pen needle, diabetic 32 gauge x 5/32 needle 1 Injection daily. 100 each 3 07/16/20 22 Active alcohol swabs pads, medicatedIndi cations:Diabe carlos Mellitus Type 2 (HCC) Use as needed for diabetes control 1500 each 3 10/10/19 23 Active blood-glucose meter miscIndicatio ns:Diabetes Mellitus Type 2 (HCC) Test as directed for diabetes control. 1 each 10/10/19 23 Active blood glucose ctl high,nml,low solutionIndic ations:Diabet es Mellitus Type 2 (HCC) Glucose control solution provides an easy way to ensure accurate blood glucose testing. 1 each 10/10/19 23 Active blood sugar diagnostic stripsIndicat ions:Diabetes Mellitus Type 2 (HCC) 2 test daily. 180 test 3 10/28/19 Active acetaminophen (TYLENOL) 325 mg tablet Take 2 tablets (650 mg total) by mouth every 6 (six) hours. 06/03/20 23 Active pediatric multivitamin- iron-minerals (Flintstones Complete) chewable tablet Chew 1 tablet 2 (two) times a day. 0 06/03/20 Active cyanocobalami n (vitamin B-12) 500 mcg tablet Take 1 tablet (500 mcg total) by mouth daily. 06/03/20 Active L.acidoph-L.b ulg-B.bif-S.t herm (BACID) 1 billion cell- 250 mg per tablet Take 1 tablet by mouth once daily. [facility] Petra Active DULoxetine (Cymbalta) [address] capsule Take 2 capsules (60 mg total) by mouth daily. Start with 1 capsule daily x 14 days, then increase to 2 capsules daily. 180 capsule 3 05/23/20 24 025 Active fluconazole (Diflucan) 150 mg tablet Take 1 tablet (150 mg total) by mouth See Admin Instructions. Take one tab now. Repeat in 7 days if symptoms persist. 2 tablet 05/23/20 24 Active gabapentin (Neurontin) 300 mg capsule Take 3 capsules (900 mg total) by mouth 3 (three) times a day. 270 capsule 2 05/23/20 24 Active QUEtiapine (SEROqueL) 200 mg tablet Take 1 tablet (200 mg total) by mouth at bedtime. 90 tablet 3 05/23/20 24 025 Active tiZANidine (Zanaflex) 2 mg tablet Take 1 tablet (2 mg total) by mouth 3 (three) times a day. 90 tablet 1 05/23/20 24 Active tretinoin (Retin-A) 0.1 % cream Apply 1 Application topically at bedtime. Apply to face 45 g 11 05/23/20 Active SUMAtriptan (Imitrex) 50 mg tablet Take 1 tablet (50 mg total) by mouth as needed for migraine. May repeat dose once in 2 hours if migraine is unresolved. Do not exceed 200 mg in 24 hours. 9 tablet 3 08/19/20 24 Active lamoTRIgine (LaMICtaL) 100 mg tablet Take 1 tablet (100 mg total) by mouth daily. 90 tablet 1 11/18/19 25 026 Active diazePAM (Valium) 5 mg tablet Take 2 tablets (10 mg total) by mouth daily as needed for anxiety, sedation or muscle spasms. 60 tablet 12/17/19 25 Active losartan (Cozaar) 100 mg tablet Take 1 tablet (100 mg total) by mouth daily. Taking half tablet twice daily 90 tablet 3 12/17/19 25 Active amphetamine-d extroamphetam ine (AdderalL XR) 10 mg 24 hr capsule Take 1 capsule (10 mg total) by mouth daily. 30 capsule 12/17/19 25 Active hydroCHLOROth iazide (HydroDiuril) 25 mg tablet Take 1 tablet (25 mg total) by mouth daily. 90 tablet 3 05/23/20 24 025 Discontinued(R eorder) losartan (Cozaar) 50 mg tablet Take 50 mg by mouth daily. Taking half tablet twice daily 025 Discontinued(R eorder) levETIRAcetam (Keppra) 500 mg tablet Take 1 tablet (500 mg total) by mouth 2 (two) times a day. 60 tablet 3 08/25/20 24 025 Discontinued(R eorder) diazePAM (Valium) 5 mg tablet Take 2 tablets (10 mg total) by mouth daily as needed for anxiety, sedation or muscle spasms. 60 tablet 11/18/19 25 025 Discontinued(R eorder) hydroCHLOROth iazide (HydroDiuril) 25 mg tablet Take 1 tablet (25 mg total) by mouth daily. Taking three times a week 90 tablet 1 12/17/19 25 025 Discontinued levETIRAcetam (Keppra) 500 mg tablet Take 1 tablet (500 mg total) by mouth 2 (two) times a day. 60 tablet 3 12/17/19 25 025 Discontinued amphetamine-d extroamphetam ine (AdderalL XR) 10 mg 24 hr capsule Take 1 capsule (10 mg total) by mouth daily. 30 capsule 12/17/19 25 025 Discontinued(R eorder) Active Problems Problem Noted Date Diagnosed Date Dysplasia Fibromuscular Arterial 12/16/2024 Pain Epigastric 08/18/2023 Gastric Bypass Status Post 05/27/2023 Obesity Body Mass Index 30-39.9 Adult 05/26/2023 Pain Low Back Unspecified 04/14/2023 Diabetes Mellitus Type 2 With Other Complication 10/13/2022 Gastroesophageal Reflux Disease 02/16/2022 Mass Abdominal Left Lower Quadrant 10/22/2021 Other Chest Pain 06/20/2021 Overview (06/20/2021): Added automatically from request for surgery [id number] Diverticulitis Colon 06/09/2021 Depression Major Recurrent Moderate 06/09/2021 Anxiety Generalized Disorder 06/09/2021 Migraine Headache 06/09/2021 Pseudotumor Cerebri Personal History 08/06/2020 Hypertension Essential Primary 12/20/2019 Bipolar II Disorder 12/20/2019 Attention Deficit With Hyperactivity Disorder Resolved Problems Problem Noted Date Diagnosed Date Resolved Date Anemia Posthemorrhagic Acute (Blood Loss Anemia) 05/28/2023 08/20/2023 Dysphagia 06/10/2021 06/12/2021 Constipation 06/10/2021 06/12/2021 Dehydration 06/09/2021 06/12/2021 Morbid Obesity Body Mass Ind ex >= 35 with Comorbid Condition 12/20/2019 07/14/2023 Encounters Date Type Department Care Team Description 01/04/2025 Clinical Communication Department of [place], [place] [address] [place] [address] Indu Broussard R.N. Quality (D5) 12/16/2024 10:40 AM CDT Office Visit Department of Family [facility], [facility], [place], [place] [address] [place] [address] Venkat Hall M.D. Dysplasia Fibromuscular Arterial (Primary Dx); Depression Major Recurrent Moderate (HCC); Diabetes Mellitus Type 2 With Other Complication (HCC); Hypertension Essential Primary; Attention Deficit With Hyperactivity Disorder; Bipolar II Disorder (HCC) 12/16/2024 Clinical Communication Department of Family Medicine, [facility], [address] [address] Venkat Hall M.D. Med Question (Change pharmacy) 12/14/2024 Refill Department of [facility], [facility], [address] [address] Venkat Hall M.D. Med Refill 11/18/2024 Refill Department of [facility], [facility], [address] [address] Venkat Hall M.D. Med Refill 11/17/2024 Refill Department of [facility], [address] [address] Venkat Hall M.D. Med Refill 10/16/2024 Refill Department of [facility], [address] [address] Venkat Hall M.D. Med Refill from Last 3 Months Immunizations Immunization Administration Dates Next Due PPD Test 10/24/2022 SARS-COV-2 (COVID-19) - PFIZ ER (Discontinued)(12 years or older) 06/28/2021,06/03/2021 Tdap 06/20/2021 Family History Medical History Relation Name Comments Irritable bowel syndrome Aunt Anxiety disorder Father Crow Hypertension Maternal Grandfather 1 Emanuel Avila Hypertension Maternal Grandfather 2 Emanuel Avila Dementia Maternal Grandmother Grandma Hyperlipidemia Maternal Grandmother Grandma Obesity Mother Mom Hypertension Mother's Brother 1 Gaetanotammy Avila Hypertension Mother's Brother 2 Gaetanotammy Avila Obesity Mother's Sister 1 Татьяна Obesity Mother's Sister 2 Татьяна Hypertension Paternal Grandfather Grandma Psychiatric Paternal Grandfather Grandma Depression Paternal Grandmother Grandpa Heart attack Uncle Amblyopia Neg Hx Cataracts Neg Hx Glaucoma Neg Hx Macular degeneration Neg Hx Retinal degeneration Neg Hx Retinal detachment Neg Hx Strabismus Neg Hx Relation Name Status Comments Aunt Other Brother 1 Tramaine Alive Brother 2 Gen Alive Father Crow Alive Maternal Grandfather 1 Emanuel Avila Alive Maternal Grandfather 2 Emanuel Avila Alive Maternal Grandmother Grandma Mother Mom Alive Mother's Brother 1 Gaetano Avila Alive Mother's Brother 2 Gaetano Avila Alive Mother's Sister 1 Татьяна Alive Mother's Sister 2 Татьяна Alive Paternal Grandfather Grandma Paternal Grandmother Grandpa Uncle Social History Tobacco Use Types Packs/Day Years Used Date Smoking Tobacco: Former Cigarettes 1 11/05/2007 - 06/05/2021 Smokeless Tobacco: Never Tobacco Cessation:Counseling Given: Not Answered Comments:Never smoked heavily or even daily. Alcohol Use Standard Drinks/Week Comments Never 0 (1 standard drink = 0.6 oz pur e alcohol) does not drink at all [facility] Utilities Answer Date Recorded In the past 12 months has e [employer], gas, oil, or water [employer] threatened to shut off services in your [...] often do you attend chur ch or rastafari services? 1 to 4 times per year 02/03/2023 Do you belong to any clubs o r organizations such as yazidism groups, unions, fraternal or athletic groups, or [...] Answer Date Recorded PHQ-2 Score 2 12/15/2024 [facility] - Occupational Stress Questionnaire Answer Date Recorded [...] your living situation today? I have a [facility] place to live 05/19/2024 Education Answer Date Recorded What is the highest level of school you have completed or the highest degree you have received? Associate degree: occupational, technical, or vocational program 02/03/2023 Comments Unknown Sex and Gender Information Value Date Recorded Sex Assigned at Female 05/31/2021 4:29 AM CDT Legal Sex Female 11:05 AM [facility] Gender Identity Female 11/08/2020 5:40 PM [facility] [employer] Sexual Orientation Straight 11/08/2020 5: 40 PM [facility] [employer] Last Filed Vital Signs Vital Sign Reading Time Taken Comments Blood Pressure 181/93 12/16/2024 11:00 AM CDT Pulse 76 12/16/2024 11:00 AM CDT Temperature 36.2 C (97.2 F) 12/16/2024 10:54 AM CDT Respiratory Rate 16 12/16/2024 10:54 AM CDT Oxygen Saturation 100% 01/07/2024 11:04 PM CDT Inhaled Oxygen Concentration - - Weight 76.2 kg (168 lb 1.6 oz) 12/16/2024 10:54 AM CDT Height 167 cm (5' 5.75) 05/23/2024 1:22 PM CDT Body Mass Index 27.34 05/23/2024 1:22 PM CDT Plan of Treatment Health Maintenance Due Date Last Done Comments Dilated Eye Exam 1980 HIV Screening 1980 Hepatitis C Screening 1980 Hepatitis B Vaccines (1 of 3 - 19+ 3-dose series) 1999 Pneumococcal vaccine (0-49 years) (1 of 2 - PCV) 1999 Mammogram 05/31/2022 05/31/2021 Tobacco Cessation counseling 06/28/2022 06/28/2021 Hemoglobin A1C 03/08/2024 09/07/2023, 03/05, 12/23/2022, Additional history exists COVID-19 Vaccine ( - 2023- season) 2024 06/28/2021, 06/03/2021 Influenza Vaccine (#1) 2024 Lipid (Cholesterol) Screening 10/22/2024 10/22/2023, 05/12/2022, 02/08/2020 Urine Albumin 10/22/2024 10/22/2023, 10/28/2022 Office Visit for Blood Pressure Check / Re-check 03/18/2025 12/16/2024 Cervical/Vaginal Cancer Screening 2025 2020, 2020 Diabetic Office Visit with Foot Exam 05/23/2025 05/23/2024 Visit: Chronic Disease, age 18+ 12/16/2025 12/16/2024, 12/16/2024 Creatinine Level (Kidney Function Test) 01/01/2026 01/01/2025, 02/20/2024, 10/22/2023, Additional history exists Potassium Level 01/01/2026 01/01/2025, 02/02, 10/22/2023, Additional history exists Sodium Level 01/01/2026 01/01/2025, 02/02, 10/22/2023, Additional history exists DTaP,Tdap,and Td Vaccines (2 - Td or Tdap) 06/20/2031 06/20/2021 Depression Screening (Annual PHQ-2) Completed 12/16/2024, 12/15/2024 Glucose Test for Med Monitoring Discontinued 01/01/2025, 02/20/2024, 10/22/2023, Additional history exists HPV Vaccines Aged Out No longer eligi ble based on patient's age to complete this topic IPV Vaccines Aged Out No longer eligi ble based on patient's age to complete this topic Medical Devices Implanted Type Area Sheet Hanger Device Identifier Shelf Expiration Date Model / Serial / Lot Intrauterine Device Intrauterine Device Uterus Description:IUD- merana Procedures Procedure Name Priority Date/Time Associated Diagnosis Comments ALBUMIN, RANDOM, U Routine 10/22/2023 3: 22 PM [employer] Diabetes Mellitus Type 2 With Other Complication Hyperglycemic (HCC) LIPID PANEL, S Routine 10/22/2023 3:20 PM [employer] Diabetes Mellitus Type 2 With Other Complication Hyperglycemic (HCC) COMPREHENSIVE METABOLIC PANEL, S/P Routine 10/22/2023 3:20 PM [employer] Gastric Bypass Status Post HEMOGLOBIN A1C, B Routine 09/07/2023 9:4 0 AM [employer] Diabetes Mellitus Type 2 With Other Complication Hyperglycemic (HCC) BI BREAST SCREENING BILATERAL WITH TOMOSYNTHESIS RAD - Routine (most inpatients and all outpatients) 05/31/2021 3:47 PM CDT Screening Mammogram Breast Cancer THINPREP W/HPV CO-TEST SCREEN Routine 2020 3:14 PM CDT Pap Smear Examination from Last 3 Months or Most Recently Relevant to Health Maintenance Results * Albumin, Random, Urine (10/22/2023 3:22 PM [employer]) Microalbumin <12.0 mg/L 10/22/2023 3:59 PM [employer] [facility] Comment:If clinically indica janelle, contact the lab for additional testing. Creatinine 159 mg/dL 10/22/2023 3:59 PM [employer] [facility] Albumin/Creatinine Ratio <8 <25 mg/g 10/22/2023 3:59 PM [employer] [facility] Comment: This ratio may not correspond with the reference range because one or both of the values used to calculate the ratio was above or below the quantification limits. Urine (Urine, Midstream) 10/22/2023 3:22 PM [employer] 10/22/2023 3:29 PM [employer] us Gen Richardson M.D. LAB URINE ORDERABLES Fin al Result [facility] [address] [place] [address] MNMN [facility] [place] [address] * Lipid Panel (10/22/2023 3:20 PM [employer]) Triglycerides 69 mg/dL 10/22/2023 3:57 PM [employer] [facility] Comment: ----REFERENCE VALUE---- Normal: <150 mg/dL Borderline High: 150-199 mg/dL High: 200-499 mg/dL Very High: > or =500 mg/dL Cholesterol, Total 190 mg/dL 2023 3:57 PM [employer] [facility] Comment: ----REFERENCE VALUE---- Desirable: < 200 mg/dL Borderline High: 200 - 239 mg/dL High: > or = 240 mg/dL Cholesterol, LDL, Calculated 122 mg/dL 10/22/2023 3:57 PM [employer] [facility] Comment: ----REFERENCE VALUE---- Desirable: <100 mg/dL Above Desirable: 100-129 mg/dL Borderline High: 130-159 mg/dL High: 160-189 mg/dL Very High: >=190 mg/dL ----ADDITIONAL INFORMATION---- LDL cholesterol calculated using the Ramon/NIH equation. Cholesterol, HDL 55 >=50 mg/dL 10/22/19 3:57 PM [employer] [facility] Cholesterol, Non-HDL, Calculated 135 mg/dL 10/22/2023 3:57 PM [employer] [facility] Comment: ----REFERENCE VALUE---- Desirable: <130 mg/dL Above Desirable: 130-159 mg/dL Borderline High: 160-189 mg/dL High: 190-219 mg/dL Very High: > or =220 mg/dL Fasting (8 HR or more) y 10/22/2023 3:29 PM [employer] [facility] Blood (Blood, Venous) 10/22/2023 3:20 PM [employer] 10/22/2023 3:29 PM [employer] us Gen Richardson M.D. LAB BLOOD ADD-ON Final R esult [facility] [address] [place] [address], [facility] MNMN [facility] [place] [address] * (ABNORMAL) Hemoglobin A1c (09/07/2023 9:40 AM [employer]) Hemoglobin A1c, B 5.7(H) 4.2 - 5.6 % 09/07/2023 10:05 AM [employer] [facility] Comment: Hemoglobin A1c values of 5.7-6.4 percent indicate an increased risk for developing diabetes mellitus. In diabetic patients, HbA1c goals should be discussed with healthcare provider. Blood (Blood, Venous) 09/07/2023 9:40 AM [employer] 09/07/2023 9:46 AM [employer] Gen Richardson M.D. LAB BLOOD ADD-ON Final R esult [facility] [address] [place] [address], [facility] [place] [address] * BI Breast Screening Bilateral with Tomosynthesis (05/31/2021 3:47 PM CDT) Anatomical Region Laterality Modality Breast, Breast Imaging RST L OS, Breast Imaging ARZ LOS, Breast Imaging FLA LOS Bilateral Mammography 06/03/2021 6:29 AM CDT Impressions 06/03/2021 6:31 AM CDT Negative. RECOMMENDATION: Annual Screening Mammogram ASSESSMENT: BI-RADS: 1: Negative. Narrative 06/03/2021 6:31 AM CDT EXAM: BI BREAST SCREENING BILATERAL WITH TOMOSYNTHESIS Current study was evaluated with a Computer Aided Detection (CAD) system. INDICATION: Screening mammogram. COMPARISON: None, this is a baseline screening exam. DENSITY: b. There are scattered areas of fibroglandular density. FINDINGS: No mammographic findings of malignancy. Procedure Note Jamil Goode M.D. - 06/03/2021 EXAM: BI BREAST SCREENING BILATERAL WITH TOMOSYNTHESIS Current study was evaluated with a Computer Aided Detection (CAD) system. INDICATION: Screening mammogram. COMPARISON: None, this is a baseline screening exam. DENSITY: b. There are scattered areas of fibroglandular density. FINDINGS: No mammographic findings of malignancy. IMPRESSION: Negative. RECOMMENDATION: Annual Screening Mammogram ASSESSMENT: BI-RADS: 1: Negative. Gen Richardson M.D. IMG BI PROCEDURES Final Result * ThinPrep w/HPV Co-Test Screen (2020 3:14 PM CDT) 04/10/2020 12:26 PM CDT ECLR Disclaimer High risk HPV testing, Real-Time Polymerase Chain Reaction (PCR) was performed on the liquid-based cytology specimen at [facility], [place], [place]. 04/10/2020 12:26 PM CDT ECLR Report electronically signed by SHELIA Martinez(ASCP) I verify that I have examined all relevant slides/materials for the specimen(s) and rendered or confirmed the diagnosis. 04/10/2020 12:26 PM CDT ECLR Gross Description Received specimen in a ThinPrep vial. 04/10/2020 12:26 PM CDT ECLR Pap Test Source Cervical/Endocervi ginger 04/10/2020 12:26 PM CDT ECLR Interpretation Cervical/Endocervi ginger (ThinPrep): Satisfactory for Evaluation Negative for Intraepithelial Lesion or Malignancy High Risk HPV testing results are NEGATIVE. See specific genotype results below. HPV with Genotyping, PCR, ThinPrep: HPV High Risk Type 16, PCR: NEGATIVE HPV High Risk Type 18, PCR: NEGATIVE HPV other High Risk types, PCR: NEGATIVE Other High Risk HPV types include: 31, 33, 35, 39, 45, 51, 52, 56, 58, 59, 66, and 68. 04/10/2020 12:26 PM CDT ECLR Varies (Cervix/Endocerv ix) 2020 3:14 PM CDT 04/05/2020 10:28 AM CDT us Maico Drew M.D. LAB PAP PATHDX EDE WHITTAKER Final Result [facility] [address] [place] [id number], [facility] ECLR [facility] in [address] [address] from Last 3 Months or Most Recently Relevant to Health Maintenance Advance Directives For more information, please contact: [phone] Documents on File Type Date Recorded Patient Toolsmith Expl anation Advance Directives 05/27/2023 11:57 AM Adolph Izquierdo. Ying Santillan HCPOA/ADVOCATE/AGENT/R EPRESENTATIVE/SURROGAT E * Full Code (Latest Code Status on File) Date Activated Date Inactivated Comments 05/26/2023 6:36 PM 06/03/2023 6:45 PM Question Answer Comments Full Code: Not Discussed Due to: Patient not available * Full Code Date Activated Date Inactivated Comments 06/09/2021 1:05 AM 06/12/2021 5:08 PM Question Answer Comments Full Code: Discussed Healthcare Agents on File Name Relationship Healthcare Agent Relationship Communication Dr. Ying Santillan Mother Health Care Agent Adolph Reddy Spouse First Alternate Health Care Agent Care Teams Bath Steward/Stewardess Relationship Specialty Start Date End Date Venkat Hall M.D. [address] [place] [phone] PCP - General Family Medicine 04/14/24
--- OUTSIDE RECORDS SUMMARY | 2025-01-05 07:57 | XMS_ITS | Clinical Summary ---
Author Organization [facility] Address [address] [place] [id number] Care Team Providers Care Charting Clerk Name Role Phone Gen Richardson Primary Care Provider [phone] Allergies No known active allergies Active Problems Problem Noted Date Diagnosed Date Epigastric pain 08/18/2023 Status post gastric bypass for obesity Low back pain 04/14/2023 Type 2 diabetes mellitus with other specified co mplication 10/13/2022 Overview (02/20/2024): Diagnosis Maintenance Updates Oct 2023 Gastroesophageal reflux disease 02/16/2022 Abdominal mass 10/22/2021 Diverticulitis of colon 06/09/2021 Generalized anxiety disorder 06/09/2021 Migraine headache 06/09/2021 Moderate episode of recurrent major depressive d isorder 06/09/2021 Personal history of other di seases of the nervous system and sense organs 08/06/2020 Attention-deficit hyperactiv ity disorder, predominantly hyperactive type 12/20/2019 Bipolar II disorder 12/20/2019 Primary hypertension 12/20/2019 Social History Tobacco Use Types Packs/Day Years Used Date Smoking Tobacco: Never Assessed Interpersonal Safety Answer Date Record ed Are you being hit, kicked, p ushed or yelled at (see row info)? No 02/20/2024 Interpersonal Safety Abuse 12 - 18 Not on file 02/20/2024 Interpersonal Safety Ambulatory Vulnerability No t on file 02/20/2024 Comments Unknown Sex and Gender Information Value Date Recorded Sex Assigned at Not on file Legal Sex Female 9:09 PM CDT Gender Identity Not on file Sexual Orientation Not on file Last Filed Vital Signs Vital Sign Reading Time Taken Comments Blood Pressure 165/102 02/20/2024 11:49 PM CDT Pulse 55 02/20/2024 11:49 PM CDT Temperature 37.1 C (98.8 F) 02/20/2024 9:25 PM CDT Respiratory Rate 16 02/20/2024 9:17 PM CDT Oxygen Saturation 99% 02/20/2024 11:49 PM CDT Inhaled Oxygen Concentration - - Weight 78.5 kg (173 lb) 02/20/2024 9:17 PM CDT Height 165.1 cm (5' 5) 02/20/2024 9:17 PM CDT Body Mass Index 28.79 02/20/2024 9:17 PM CDT Plan of Treatment Health Maintenance Due Date Last Done Comments Tdap 1991 Depression screening for age 12+ 1992 HIV for age 15-65 1995 BMI (ht and wt on same day) for age 18+ 1998 Hepatitis C screening for age 18-79 1998 Pneumococcal series for age 6-49 (1 of 2 - PCV) 1999 Tetanus booster 2000 Pap test for age 21-65 2001 COVID-19 vaccine series ( season) 2024 06/28/2021, 06/03/2021 Influenza Vaccine (#1) 2024 Insurance KELVIN LING MA Care Teams Charting Clerk Relationship Specialty Start Date End Date Gen Richardson [address] [place] [address] PCP - General Family Practice 02/20/24
--- OUTSIDE RECORDS SUMMARY | 2025-01-05 07:57 | XMS_ITS | Encounter Summary ---
Author Organization [facility] Address [address] [place] [address] Care Team Providers Care Integration Consultant Name Role Phone Venkat Hall M.D. Primary Care Provider [phone] Reason for Referral * Outpatient (Routine) - Authorized Specialty Diagnoses / Procedures Referred By Kacey edge Referred To Contact Venkat Hall M.D. [address] [place] [address] Phone: tel: fax: [facility] Region Referral ID Status Reason Start Date Expiration Date V isits Requested Visits Authorized [id number] Authorized 12/16/2024 06/17/2026 1 1 Reason for Visit * Reason Comments Fatigue X 2 WEEKS Headache X 1 WEEK * Appointment Request (Routine) - Pending Review Specialty Diagnoses / Procedures Referred By Kacey edge Referred To Contact Family Medicine Referral ID Status Reason Start Date Expiration Date V isits Requested Visits Authorized [id number] Pending Review 12/12/2024 03/14/2026 1 1 Encounter Details Date Type Department Care Team (Latest Contact Info) Description 12/16/2024 10:40 AM CDT Office Visit Department of Family Medicine, [facility], in [place], [place] [address] [place] [address] Venkat Hall M.D. [address] [facility] [place] [address] Dysplasia Fibromuscular Arterial (Primary Dx); Depression Major Recurrent Moderate (HCC); Diabetes Mellitus Type 2 With Other Complication (HCC); Hypertension Essential Primary; Attention Deficit With Hyperactivity Disorder; Bipolar II Disorder (HCC) Social History Tobacco Use Types Packs/Day Years Used Date Smoking Tobacco: Former Cigarettes 1 11/05/2007 - 06/05/2021 Smokeless Tobacco: Never Tobacco Cessation:Counseling Given: Not Answered Comments:Never smoked heavily or even daily. Alcohol Use Standard Drinks/Week Comments Never 0 (1 standard drink = 0.6 oz pur e alcohol) does not drink at all [facility] Utilities Answer Date Recorded In the past 12 months has [employer], gas, oil, or water [employer] threatened to shut off services in your [...] declined 02/03/2023 How often do you attend [facility] or anabaptist services? 1 to 4 times per year 02/03/2023 Do you belong to any clubs o r organizations such as tenriism groups, unions, fraternal or athletic groups, or [...] Answer Date Recorded PHQ-2 Score 2 12/15/2024 [facility] of Occupat ional [facility] - Occupational Stress Questionnaire Answer Date [...] your living situation today? I have a [facility] place to live 05/19/2024 Education Answer Date Recorded What is the highest level of school you have completed or the highest degree you have received? Associate degree: occupational, technical, or vocational program 02/03/2023 Comments Unknown Sex and Gender Information Value Date Recorded Sex Assigned at Female 05/31/2021 4:29 AM CDT Legal Sex Female 11:05 AM SALES REPRESENTATIVE GAS SERVICE Gender Identity Female 11/08/2020 5:40 PM SALES REPRESENTATIVE GAS SERVICE Sexual Orientation Straight 11/08/2020 5: 40 PM SALES REPRESENTATIVE GAS SERVICE documented as of this encounter Last Filed Vital Signs Vital Sign Reading Time Taken Comments Blood Pressure 181/93 12/16/2024 11:00 AM CDT Pulse 76 12/16/2024 11:00 AM CDT Temperature 36.2 C (97.2 F) 12/16/2024 10:54 AM CDT Respiratory Rate 16 12/16/2024 10:54 AM CDT Oxygen Saturation - - Inhaled Oxygen Concentration - - Weight 76.2 kg (168 lb 1.6 oz) 12/16/2024 10:54 AM CDT Height - - Body Mass Index 27.34 05/23/2024 1:22 PM CDT documented in this encounter Progress Notes * Venkat Hall M.D. - 12/16/2024 10:40 AM CDT Progress Note Lucita Reddy is a 44 y.o. female with past medical history significant for bipolar, anxiety, depression, ADHD, obesity status post gastric bypass in May of 2023, type 2 diabetes, hypertension, anemia, who presents today for follow up hypertension. - Presents with fatigue and lethargy for past 2 weeks, progressively worsening from onset 1 month ago - Experiencing constant dull aching headache for 1 week, unresponsive to medication - Excessive daytime sleepiness: falling asleep immediately after work, sleeping through evening after minimal activity - Sleep pattern changed from difficulty falling and staying asleep to excessive sleeping - Unable to stay awake during day despite attempts to establish morning routine - Significant impact on daily functioning: difficulty completing work tasks, making mistakes at work, unable to complete academic assignments - Associated symptoms: poor concentration, difficulty focusing on tasks, frequently misplacing items, overwhelmed by daily activities - Avoiding social interactions and experiencing anxiety about unexpected communications (phone calls, visitors) - Significant academic impact: behind on coursework, struggling to meet deadlines for February graduation - Mental health history: Under psychiatric care through [facility] - Previous successful treatment with Adderall 30mg for ADHD symptoms - New prescription for Trintellix pending (insurance issues delayed start) No Known Allergies Current Medications[1] Medical History[2] Social History[3] REVIEW OF SYSTEMS Vitals: 12/16/24 1054 12/16/24 1100 BP: (!) 161/101 (!) 181/93 BP Location: Left arm Left arm Patient Position: Sitting Sitting Cuff Size: Regular Regular Pulse: 77 76 Resp: 16 Temp: 36.2 ??C TempSrc: Temporal Weight: 76.2 kg Constitutional Appearance: She is well-developed. HENT Head: Normocephalic and atraumatic. Right Ear: External ear normal. Left Ear: External ear normal. Nose: Nose normal. Eyes Conjunctiva/sclera: Conjunctivae normal. Pupils: Pupils are equal, round, and reactive to light. Cardiovascular Rate and Rhythm: Normal rate and regular rhythm. Heart sounds: Normal heart sounds. Pulmonary Effort: Pulmonary effort is normal. No respiratory distress. Breath sounds: Normal breath sounds. Abdominal General: Bowel sounds are normal. There is no distension. Palpations: Abdomen is soft. There is no mass. Tenderness: There is no abdominal tenderness. There is no guarding. Musculoskeletal General: Normal range of motion. Cervical back: Normal range of motion and neck supple. Skin General: Skin is warm and dry. Neurological Mental Status: She is alert and oriented to person, place, and time. Deep Tendon Reflexes: Reflexes are normal and symmetric. Psychiatric Behavior: Behavior normal. Lucita was seen today for fatigue and headache. Diagnoses and all orders for this visit: Dysplasia Fibromuscular Arterial (HCC) We will continue monitoring Diabetes Mellitus Type 2 With Other Complication (HCC) - Hemoglobin A1c; Future - Lipid Panel; Future - She is due for labs, ordered Hypertension Essential Primary - Blood pressure significantly elevated despite current treatment - Discontinue hydrochlorothiazide, patient complained of feeling dehydrated and requested to stop the medication - Increase Losartan dose with potential to titrate up to 100mg - Arrange nurse visit in 1 week for blood pressure check with device Attention Deficit With Hyperactivity Disorder - Assessment: Significant functional impairment affecting work and academic performance - Plan: Restart Adderall XR starting at 10mg - Arrange stimulant medication contract - Monitor response and adjust dose as needed -Side effects of the medication discussed Bipolar II Disorder (HCC) Depression Major Recurrent Moderate (HCC) - Multiple contributing factors including trauma history, attachment issues, anxiety - Recommended trauma-focused therapy - Continue current Lamictal 100 mg daily, Seroquel 100 mg at night, duloxetine 30 mg b.i.d. and diazepa - Plan to transition from virtual to in-person psychiatric care Syncopal spells - Discontinue Depakote due to: - Resolution of previous episodes, had it once since August - Poor compliance - Side effects (hand tremors) - Consider neurology referral if episodes recur Other orders - losartan (Cozaar) 100 mg tablet; Take 1 tablet (100 mg total) by mouth daily. Taking half tablet twice daily - Primary Care nurse visit (clinic) - [facility] Region; BP check; BP check w/ home device; Future - amphetamine-dextroamphetamine (AdderalL XR) 10 mg 24 hr capsule; Take 1 capsule (10 mg total) by mouth daily. 50 minutes spent with the patient, 50% of the time spent in care coordination and counseling [1] Current Outpatient Medications: acetaminophen (TYLENOL) 325 mg tablet, Take 2 tablets (650 mg total) by mouth every 6 (six) hours.,Disp: , Rfl: alcohol swabs pads, medicated, Use as needed for diabetes control, Disp: 1500 each, Rfl: 3 blood glucose ctl high,nml,low solution, Glucose control solution provides an easy way to ensure accurate blood glucose testing., Disp: 1 each, Rfl: 0 blood sugar diagnostic strips, 2 test daily., Disp: 180 test, Rfl: 3 blood-glucose meter mis, Test as directed for diabetes control., Disp: 1 each, Rfl: 0 cyanocobalamin (vitamin B-12) 500 mcg tablet, Take 1 tablet (500 mcg total) by mouth daily., Disp: , Rfl: diazePAM (Valium) 5 mg tablet, Take 2 tablets (10 mg total) by mouth daily as needed for anxiety, sedation or muscle spasms., Disp: 60 tablet, Rfl: 0 DULoxetine (Cymbalta) [address] capsule, Take 2 capsules (60 mg total) by mouth daily. Start with 1 capsule daily x 14 days, then increase to 2 capsules daily., Disp: 180 capsule, Rfl: 3 fluconazole (Diflucan) 150 mg tablet, Take 1 tablet (150 mg total) by mouth See Admin Instructions.Take one tab now. Repeat in 7 days if symptoms persist., Disp: 2 tablet, Rfl: 0 gabapentin (Neurontin) 300 mg capsule, Take 3 capsules (900 mg total) by mouth 3 (three) times a day., Disp: 270 capsule, Rfl: 2 L.acidoph-L.bulg-B.bif-S.therm (BACID) 1 billion cell- 250 mg per tablet, Take 1 tablet by mouth once daily. [facility], Disp: , Rfl: lamoTRIgine (LaMICtaL) 100 mg tablet, Take 1 tablet (100 mg total) by mouth daily., Disp: 90 tablet, Rfl: 1 levonorgestreL (MIRENA) 20 mcg/24 hours (6 yrs) 52 mg IUD, 1 each by intrauterine route continuously., Disp: , Rfl: losartan (Cozaar) 100 mg tablet, Take 1 tablet (100 mg total) by mouth daily. Taking half tablet twice daily, Disp: 90 tablet, Rfl: 3 pediatric xwxvbnagzlzt-fyqh-zghihkzq (Flintstones Complete) chewable tablet, Chew 1 tablet 2 (two) times a day., Disp: , Rfl: 0 pen needle, diabetic 32 gauge x 5/32 needle, 1 Injection daily., Disp: 100 each, Rfl: 3 QUEtiapine (SEROqueL) 200 mg tablet, Take 1 tablet (200 mg total) by mouth at bedtime., Disp: 90 tablet, Rfl: 3 SUMAtriptan (Imitrex) 50 mg tablet, Take 1 tablet (50 mg total) by mouth as needed for migraine. May repeat dose once in 2 hours if migraine is unresolved. Do not exceed 200 mg in 24 hours., Disp: 9 tablet, Rfl: 3 tiZANidine (Zanaflex) 2 mg tablet, Take 1 tablet (2 mg total) by mouth 3 (three) times a day., Disp: 90 tablet, Rfl: 1 tretinoin (Retin-A) 0.1 % cream, Apply 1 Application topically at bedtime. Apply to face, Disp: 45 g, Rfl: 11 amphetamine-dextroamphetamine (AdderalL XR) 10 mg 24 hr capsule, Take 1 capsule (10 mg total) by mouth daily., Disp: 30 capsule, Rfl: 0 [2] Past Medical History: Diagnosis Date Anxiety Generalized Disorder 2014 Depressive Disorder 2014 Diabetes Mellitus Type 2 With Other Complication Hyperglycemic (HCC) 10/13/2022 Gastroesophageal Reflux Disease NOS Hypertension NOS 2009 Migraine Headache [3] Social History Tobacco Use Smoking status: Former Current packs/day: 0.00 Types: Cigarettes Start date: 09/04/2008 Quit date: 06/05/2021 Years since quittin.5 Smokeless tobacco: Never Tobacco comments: Never smoked heavily or even daily. Vaping Use Vaping status: current some days use Substances: Nicotine Substance Use Topics Alcohol use: Never Comment: does not drink at all Drug use: Yes Frequency: 2.0 times per week Types: Marijuana Comment: Recreational use not every day documented in this encounter Plan of Treatment Scheduled Orders Name Type Priority Associated Diagnoses Orde r Schedule Hemoglobin A1c Lab Routine Diabetes Mellitus Type 2 With Other Complication (HCC) Expected: 12/16/2024, Expires: 03/18/2026 Lipid Panel Lab Routine Diabetes Mellitus Type 2 With Other Complication (HCC) Expected: 12/16/2024, Expires: 03/18/2026 Scheduled Referrals Name Type Priority Associated Diagnoses Orde r Schedule Primary Care nurse visit (clinic) - [facility] Region; BP check; BP check w/ home device Outpatient Referral Routine Expected: 12/23/2024, Expires: 03/18/2026 documented as of this encounter Visit Diagnoses Diagnosis Dysplasia Fibromuscular Arterial- Primary Depression Major Recurrent Moderate (HCC) Diabetes Mellitus Type 2 With Other Complication (HCC) Hypertension Essential Primary Attention Deficit With Hyperactivity Disorder Bipolar II Disorder (HCC) documented in this encounter Additional Health Concerns Assessment Noted Time PHQ-9 Depression Total Score: 8 05/23/20 24 1:28 PM CDT documented as of this encounter Care Teams Integration Consultant Relationship Specialty Start Date End Date Venkat Hall M.D. [address] [place] [address] [place] [phone] PCP - General Family Medicine 04/14/24 documented as of this encounter
--- OUTSIDE RECORDS SUMMARY | 2025-01-05 07:57 | XMS_ITS ---
Author Organization [facility] Address [address] [place] [address] Care Team Providers Care Air Compressor Engineer Name Role Phone Venkat Hall M.D. Primary Care Provider Bariatrics Program Status:Enrolled (Active) Start date:02/13/2022 Enrollment date:02/13/2022 Enrollment reason:Referred by provider Current support & services provided:Post-Op Related social drivers of health:Food Insecurity, Transportation Needs Overview RNJhoan; DOS: 05/26/2023 04/22/24 pt states she lives in [place], [place] now. Wants to stay in [facility]- reached out to [facility] to clarify if possible. WLP Continued Care and Services Coordination
--- OUTSIDE RECORDS SUMMARY | 2025-01-05 07:57 | XMS_ITS | Encounter Summary ---
Author Organization [facility] Address [address] [place] [address] Care Team Providers Care Microfilm Mounter Name Role Phone Venkat Hall M.D. Primary Care Provider Reason for Visit * Reason Onset Date Comments Med Question 12/16/2024 Change pharmacy Encounter Details Date Type Department Care Team (Latest Contact Info) Description 12/16/2024 Clinical Communication Department of Family Medicine, [facility], in [place], [place] [address] [place] [address] Venkat Hall M.D. [address] [place] [phone] Med Question (Change pharmacy) Social History Tobacco Use Types Packs/Day Years Used Date Smoking Tobacco: Former Cigarettes 1 11/05/2007 - 06/05/2021 Smokeless Tobacco: Never Comments:Never smoked heavil y or even daily. Alcohol Use Standard Drinks/Week Comments Never 0 (1 standard drink = 0.6 oz pur e alcohol) does not drink at all [facility] Utilities Answer Date Recorded In the past 12 months has th e electric, gas, oil, or water company [...] 02/03/2023 How often do you attend chur or orthodoxy services? 1 to 4 times per year 02/03/2023 Do you belong to any clubs o r organizations such as jainism groups, unions, fraternal or athletic groups, or [...] Answer Date Recorded PHQ-2 Score 2 12/15/2024 [facility] [place] of Occupat ional Health - Occupational Stress [...] your living situation today? I have a [facility] place to live 05/19/2024 Education Answer Date Recorded What is the highest level of school you have completed or the highest degree you have received? Associate degree: occupational, technical, or vocational program 02/03/2023 Comments Unknown Sex and Gender Information Value Date Recorded Sex Assigned at Female 05/31/2021 4:29 AM CDT Legal Sex Female 11:05 AM AUDIOVISUAL EQUIPMENT OPERATOR Gender Identity Female 11/08/2020 5:40 PM AUDIOVISUAL EQUIPMENT OPERATOR Sexual Orientation Straight 11/08/2020 5: 40 PM AUDIOVISUAL EQUIPMENT OPERATOR documented as of this encounter Miscellaneous Notes * Telephone Encounter - Margaret Minor L.PGlendyN. - 12/16/2024 2:09 PM CDT This was taken care of in another message and RX for Adderall was sent to [facility] in [place] documented in this encounter Plan of Treatment Not on file documented as of this encounter Visit Diagnoses Not on filedocumented in this encounter Additional Health Concerns Assessment Noted Time PHQ-9 Depression Total Score: 8 05/23/20 24 1:28 PM CDT documented as of this encounter Care Teams Microfilm Mounter Relationship Specialty Start Date End Date Venkat Hall M.D. [address] [place] [phone] PCP - General Family Medicine 04/14/24 documented as of this encounter
--- OUTSIDE RECORDS SUMMARY | 2025-01-05 07:57 | XMS_ITS | Encounter Summary ---
Author Organization [facility] Address [address] [place] [address] Care Team Providers Care Bee Rancher Name Role Phone Venkat Hall M.D. Primary Care Provider Reason for Visit * Reason Comments Med Refill Encounter Details Date Type Department Care Team (Late st Contact Info) Description 11/18/2024 Refill Department of Family Medicine, [facility], in [place], [place] [address] [place] [address] Venkat Hall M.D. [address] [place] [address] Med Refill Social History Tobacco Use Types Packs/Day Years Used Date Smoking Tobacco: Former Cigarettes 1 11/05/2007 - 06/05/2021 Smokeless Tobacco: Never Comments:Never smoked heavil y or even daily. Alcohol Use Standard Drinks/Week Comments Never 0 (1 standard drink = 0.6 oz pur e alcohol) does not drink at all [facility] Utilities Answer Date Recorded In the [...] often do you attend chur ch or anabaptism services? 1 to 4 times per year 02/03/2023 Do you belong to any clubs o r organizations such as temple groups, unions, fraternal or athletic groups, or [...] 03/04/2023 PHQ-2 Answer Date Recorded PHQ-2 Score 0 05/23/2024 [facility] [place] of Occupat ional Health - Occupational Stress [...] your living situation today? I have a [facility] place to live 05/19/2024 Education Answer Date Recorded What is the highest level of school you have completed or the highest degree you have received? Associate degree: occupational, technical, or vocational program 02/03/2023 Comments No Sex and Gender Information Value Date Recorded Sex Assigned at Female 05/31/2021 4:29 AM CDT Legal Sex Female 11:05 AM RNP Gender Identity Female 11/08/2020 5:40 PM RNP Sexual Orientation Straight 11/08/2020 5: 40 PM RNP documented as of this encounter Miscellaneous Notes * Telephone Encounter - Jerilyn Mccain - 11/21/2024 3:03 PM CST Duplicate-addressed in another encounter documented in this encounter Plan of Treatment Not on file documented as of this encounter Visit Diagnoses Not on filedocumented in this encounter Additional Health Concerns Assessment Noted Time PHQ-9 Depression Total Score: 8 05/23/20 24 1:28 PM CDT documented as of this encounter Care Teams Bee Rancher Relationship Specialty Start Date End Date Venkat Hall M.D. [address] [place], [place] [address], [place] [phone] PCP - General Family Medicine 04/14/24 documented as of this encounter
--- OUTSIDE RECORDS SUMMARY | 2025-01-05 07:57 | XMS_ITS | Encounter Summary ---
Author Organization [facility] Address [address] [place] [address] Care Team Providers Care Software Developer Mid Level Name Role Phone Venkat Hall M.D. Primary Care Provider Reason for Visit * Reason Onset Date Comments Quality 01/04/2025 D5 Encounter Details Date Type Department Care Team (Late st Contact Info) Description 01/04/2025 Clinical Communication Department of Family Medicine, [facility], in [address] [phone] Indu Broussard R.N. Quality (D5) Social History Tobacco Use Types Packs/Day Years Used Date Smoking Tobacco: Former Cigarettes 1 11/05/2007 - 06/05/2021 Smokeless Tobacco: Never Comments:Never smoked heavil y or even daily. Alcohol Use Standard Drinks/Week Comments Never 0 (1 standard drink = 0.6 oz pur e alcohol) does not drink at all [facility] Utilities Answer Date Recorded In the [...] any clubs o r organizations such as confucianist groups, unions, fraternal or athletic groups, or [...] Answer Date Recorded PHQ-2 Score 2 12/15/2024 [facility] [place] of Occupat ional Health - Occupational Stress [...] your living situation today? I have a [facility] place to live 05/19/2024 Education Answer Date Recorded What is the highest level of school you have completed or the highest degree you have received? Associate degree: occupational, technical, or vocational program 02/03/2023 Comments Unknown Sex and Gender Information Value Date Recorded Sex Assigned at Female 05/31/2021 4:29 AM CDT Legal Sex Female 11:05 AM RADIOLOGY DIRECTOR Gender Identity Female 11/08/2020 5:40 PM RADIOLOGY DIRECTOR Sexual Orientation Straight 11/08/2020 5: 40 PM RADIOLOGY DIRECTOR documented as of this encounter Plan of Treatment Not on file documented as of this encounter Visit Diagnoses Not on filedocumented in this encounter Additional Health Concerns Assessment Noted Time PHQ-9 Depression Total Score: 8 05/23/20 24 1:28 PM CDT documented as of this encounter Care Teams Software Developer Mid Level Relationship Specialty Start Date End Date Venkat Hall M.D. [address] [place] [address] [place] [phone] PCP - General Family Medicine 04/14/24 documented as of this encounter
--- OUTSIDE RECORDS SUMMARY | 2025-01-05 07:57 | XMS_ITS | Encounter Summary ---
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 Name Role Phone Clinic, [facility] Primary [facility] Prov ider Reason for Visit * Reason Comments Chest Pain Encounter Details Date Type Department Care Team (Late st Contact Info) Description 01/01/2025 3:03 AM CDT - 01/01/2025 6:22 AM CDT Emergency [facility] Emergency Dept [address] [place] [id number] Anabelle Doe, DO [facility] [address] [place] [address] Chest pain, unspecified type; Hypertension, unspecified type Discharge Disposition: Home or Self Care Social History Tobacco Use Types Packs/Day Years Used Date Smoking Tobacco: Never Assessed Comments No Sex and Gender Information Value Date Recorded Sex Assigned at Not on file Legal Sex Female 2:59 AM CDT Gender Identity Not on file Sexual Orientation Not on file documented as of this encounter Last Filed Vital Signs Vital Sign Reading Time Taken Comments Blood Pressure 167/112 01/01/2025 5:00 AM CDT Pulse 76 01/01/2025 5:00 AM CDT Temperature 36.7 C (98.1 F) 01/01/2025 3:19 AM CDT Respiratory Rate 16 01/01/2025 3:50 AM CDT Oxygen Saturation 99% 01/01/2025 5:00 AM CDT Inhaled Oxygen Concentration - - Weight - - Height - - Body Mass Index - - documented in this encounter Discharge Instructions * Attachments The following attachments cannot be sent through Care Everywhere. * Chest Pain (Libyan) documented in this encounter ED Notes * Shirley Arvizu, RAQUEL - 01/01/2025 3:21 AM CDT Patient comes to ED for evaluation of chest pain/anxiety. Patient reports being at work tonight, states she took and energy supplement and started to feel unwell. Shaking cold sweats/chest pain, anxiety. No cardiac hx. Alert and oriented x 4, pain 7/10 in chest radiating to jaw. Triage Assessment (Adult) Row Name 01/01/25 0321 Triage Assessment Airway WDL WDL Respiratory WDL Respiratory WDL X;rhythm/pattern Rhythm/Pattern, Respiratory shallow;tachypneic Skin Circulation/Temperature WDL Skin Circulation/Temperature WDL WDL Cardiac WDL Cardiac WDL WDL Peripheral/Neurovascular WDL Peripheral Neurovascular WDL WDL Cognitive/Neuro/Behavioral WDL Cognitive/Neuro/Behavioral WDL WDL * Anabelle Doe, - 01/01/2025 3:14 AM CDT Emergency Department Note History of Present Illness Chief Complaint Chest Pain HPI Lucita Reddy is a 44 year old female presenting with chest pain. Patient reports working overtime at work and around 11PM took an energy supplement she has never taken before. Nearly immediately thereafter patient reports developing midsternal chest pain, nonradiating described as sharp pressure. Reports accompanying nausea, chills and dyspnea. No fever, cough, abdominal pain, vomiting or other symptoms. She denies ETOH/drug use or prior use of this supplement. She has an IUD. No family history early NE. Patient reports reading about a heart attack and noted she had all the symptoms prompting concern and presentation. Independent Historian as detailed above. Review of External Notes none Past Medical History Medical History and Problem List No past medical history on file. Medications No current outpatient medications on file. Surgical History No past surgical history on file. Physical Exam Patient Vitals for the past 24 hrs: BP Temp Temp src Pulse Resp SpO2 01/01/25 0350 (!) 168/110 -- -- 73 16 100 % 01/01/25 0330 (!) 170/111 -- -- 73 18 100 % 01/01/25 0319 (!) 171/122 98.1 ??F (36.7 ??C) Oral 87 24 100 % Physical Exam Nursing note and vitals reviewed. Constitutional: Well nourished. Hyperventilating Eyes: Conjunctiva normal. Pupils are equal, round, and reactive to light. ENT: Nose normal. Mucous membranes pink and moist. Posterior oropharyngeal erythema, no exudate. Uvula midline. TM normal bilaterally. Neck: Normal range of motion. CVS: Normal rate, regular rhythm. Normal heart sounds. Pulmonary: Lungs clear to auscultation bilaterally. No wheezes/rales/rhonchi. GI: Abdomen soft. Nontender, nondistended. No rigidity or guarding. MSK: No calf tenderness or swelling. Neuro: Alert. Follows simple commands. Skin: Skin is warm and dry. No rash noted. Psychiatric: Anxious appearing Diagnostics Lab Results Labs Ordered and Resulted from Time of ED Arrival to Time of ED Departure COMPREHENSIVE METABOLIC PANEL - Abnormal Result Value Sodium 141 Potassium 4.2 Carbon Dioxide (CO2) 20 (*) Anion Gap 15 Urea Nitrogen 16.1 Creatinine 1.10 (*) GFR Estimate 63 Calcium 9.8 Chloride 106 Glucose 99 Alkaline Phosphatase 115 AST 32 ALT 20 Protein Total 7.4 Albumin 4.7 Bilirubin Total 0.2 CBC WITH PLATELETS AND DIFFERENTIAL - Abnormal WBC Count 8.0 RBC Count 5.23 (*) Hemoglobin 14.6 Hematocrit 44.3 MCV 85 MCH 27.9 MCHC 33.0 RDW 13.6 Platelet Count 281 % Neutrophils 62 % Lymphocytes 32 % Monocytes 5 % Eosinophils 0 % Basophils 1 % Immature Granulocytes 0 NRBCs per 100 WBC 0 Absolute Neutrophils 4.9 Absolute Lymphocytes 2.5 Absolute Monocytes 0.4 Absolute Eosinophils 0.0 Absolute Basophils 0.0 Absolute Immature Granulocytes 0.0 Absolute NRBCs 0.0 TROPONIN T, HIGH SENSITIVITY - Normal Troponin T, High Sensitivity 10 D DIMER QUANTITATIVE - Normal D-Dimer Quantitative 0.33 HCG QUALITATIVE - Normal hCG Serum Qualitative Negative INFLUENZA A/B, RSV AND SARS-COV2 PCR - Normal Influenza A PCR Negative Influenza B PCR Negative RSV PCR Negative SARS CoV2 PCR Negative GROUP A STREPTOCOCCUS PCR THROAT SWAB - Normal Group A strep by PCR Not Detected TROPONIN T, HIGH SENSITIVITY Imaging XR Chest 2 Views Final Result IMPRESSION: Negative chest. EKG ECG results from 01/01/25 EKG 12-lead, tracing only Value Systolic Blood Pressure Diastolic Blood Pressure Ventricular Rate 87 Atrial Rate 87 OK Interval 170 QRS Duration 82 QT 384 QTc 462 P [place] 83 R AXIS 54 T [place] 72 Interpretation ECG Sinus rhythm Minimal voltage criteria for LVH, may be normal variant ( Sokolow-Steen ) Borderline ECG When compared with ECG of 01-Jan-2025 03:01, (unconfirmed) No significant change was found Independent Interpretation CXR: No pneumothorax, infiltrate, or pleural effusion. ED Course Medications Administered Medications famotidine (PEPCID) injection 20 mg (20 mg Intravenous $Given 01/01/25318) ondansetron (ZOFRAN) injection 4 mg (4 mg Intravenous $Given 01/01/25318) LORazepam (ATIVAN) injection 1 mg (1 mg Intravenous $Given 01/01/25318) Procedures Procedures Discussion of Management None ED Course ED Course as of 01/01/25357 [place] Jan 01, 2025 035 Patient reports much improvement though also notes now having sore throat Additional Documentation None Medical Decision Making / Diagnosis [facility] Diagnoses: None MIPS None [facility] Lucita Reddy is a 44 year old female presenting with predominately complaints of chest pain.She is quite anxious appearing on arrival, hyperventilating notably hypertensive. EKG without focalischemia or underlying arrhythmia. High-sensitivity screening troponin negative x 2. Low clinical botello spicion for ACS at this time. D-dimer negative, clinically doubt PE. Chest x-ray without pneumothorax, widened mediastinum, fluid overload or acute process. She has no abdominal tenderness and I doubt intra-abdominal source to explain her pain. Patient was given Ativan known on arrival in the edition to [place]. During her time in the ED she did report symptom improvement. Her blood pressure remain s slightly elevated as well though no evidence to suggest hypertensive emergency today. Upon reassessment however she did complain of slight sore throat as well so formal strep sent though negative. Low clinical suspicion for underlying allergic response today. Review of capsule that patient reportedly took this evening does contain caffeine and other herbal ingredients. I recommended she not take this again though no evidence to suggest life-threatening toxidrome at this point in time. I do suspect some component of underlying anxiety may have precipitated her presentation as well. She plansto follow-up closely with PCP and is aware that should symptoms worsen to promptly represent. Disposition The patient was discharged. Diagnosis ICD-10-CM 1. Chest pain, unspecified type R07.9 2. Hypertension, unspecified type I10 Discharge Medications New Prescriptions No medications on file DO Nader Cota Lindsey E, DO 01/01/25 0523 * Ольга Monroy RN - 01/01/2025 3:09 AM CDT ran into the triage lobby that was she is having a heart attack, dying. You need to help her now. Filer Finish obtained wheelchair to get to the car. screaming at blog writer not moving fast enough. Filer Finish attempted to ask questions outside. stated, weren't you fleila listening. Patient taken to EKG room to obtain EKG. Patient's airway intact. Able to state name. No signs of poor perfusion at this time. Patient unable to hold still and not cry for accurate EKG. Patient taken to room 11 not triaged. Report given to Shirley GARCÍA. documented in this encounter Plan of Treatment Not on file documented as of this encounter Procedures Procedure Name Priority Date/Time Associated Diagnosis Comments TROPONIN T, HIGH SENSITIVITY STAT 01/01/2025 5:20 AM CDT XR CHEST 2 VIEWS STAT 01/01/2025 4:14 AM CDT INFLUENZA A/B, RSV AND SARS-COV2 PCR STAT 01/01/2025 4:00 AM CDT GROUP A STREPTOCOCCUS PCR THROAT SWAB STAT 01/01/2025 4:00 AM CDT EKG 12-LEAD, TRACING ONLY STAT 01/01/2025 3:16 AM CDT HCG QUALITATIVE STAT 01/01/2025 3:16 AM CDT D DIMER QUANTITATIVE STAT 01/01/2025 3:15 AM CDT CBC WITH PLATELETS AND DIFFERENTIAL STAT 01/01/2025 3:14 AM CDT TROPONIN T, HIGH SENSITIVITY STAT 01/01/2025 3:14 AM CDT CBC WITH PLATELETS & DIFFERENTIAL STAT 01/01/2025 3:14 AM CDT COMPREHENSIVE METABOLIC PANEL STAT 01/01/2025 3:14 AM CDT EKG 12-LEAD, TRACING ONLY STAT 01/01/2025 3:01 AM CDT documented in this encounter Results * Troponin T, High Sensitivity (01/01/2025 5:20 AM CDT) [facility] Troponin T, High Sensitivity 9 <=14 ng/L 01/01/2025 5:42 AM CDT LABORATORY Comment: Either a High Sensitivity Troponin T baseline (0 hours) value = 100 ng/L, or an increase in High Sensitivity Troponin T = 7 ng/L at 2 hours compared to 0 hours (2-0 hours), suggests myocardial injury, and urgent clinical attention is required. If the 2-0 hours increase is <7 ng/L, a High Sensitivity Troponin T result above gender-specific reference ranges warrants further evaluation. Recommendations for further evaluation include correlation with clinical decision-making tool (e.g., HEART), a 3rd High Sensitivity Troponin T test 2 hours after the 2nd (a 20% change from baseline would represent concern), admission for observation, close PCC/cardiology follow-up, or urgent outpatient provocative testing. Blood BLOOD SPECIMEN / Unknown Venipuncture / Unknown 01/01/2025 5:20 AM CDT 01/01/2025 5:23 AM CDT us Anabelle Doe DO LAB - BLOOD ORDERABLES Fin al Result LABORATORY [facility] [address] Lab (1st floor, no room number) [place] [address], [place] * XR Chest 2 Views (01/01/2025 4:14 AM CDT) Anatomical Region Laterality Modality Chest Digital Radiogra phy 01/01/2025 4:14 AM CDT Impressions 01/01/2025 4:16 AM CDT IMPRESSION: Negative chest. Narrative 01/01/2025 4:16 AM CDT EXAM: XR CHEST 2 VIEWS LOCATION: [facility] DATE: 01/01/2025 INDICATION: chest pain COMPARISON: None. Procedure Note Laron Rangel MD - 01/01/2025 EXAM: XR CHEST 2 VIEWS LOCATION: [facility] DATE: 01/01/2025 INDICATION: chest pain COMPARISON: None. IMPRESSION: Negative chest. Anabelle Doe DO IMG DIAGNOSTIC IMAGING ORD ERABLES Final Result * Influenza A/B, RSV and SARS-CoV2 PCR (COVID-19) Nasopharyngeal (01/01/2025 4:00 AM CDT) [facility] Influenza A PCR Negative Negative 01/01/2025 4:40 AM CDT LABORATORY Influenza B PCR Negative Negative 01/01/2025 4:40 AM CDT LABORATORY RSV PCR Negative Negative 01/01/2025 4:40 AM CDT LABORATORY SARS CoV2 PCR Negative Negative 01/01/2025 4:40 AM CDT LABORATORY Comment:NEGATIVE: SARS-CoV-2 (COVID-19) RNA not detected, presumed negative. Swab NASOPHARYNGEAL STRUCTURE / Unknown Non-blood Collection / Unknown 01/01/2025 4:00 AM CDT 01/01/2025 4:03 AM CDT Narrative LABORATORY - 01/01/2025 4:40 AM CDT Testing was performed using the Xpert Xpress CoV2/Flu/RSV Assay on the [employer] Gene[employer]pert Instrument. This test should be ordered for the detection of SARS- CoV2, influenza, and RSV viruses in individuals with signs and symptoms of respiratory tract infection. This test is for in vitro diagnostic use under the [place] FDA for laboratories certified under CLIA to perform high or moderate complexity testing. This test has been [place] FDA cleared. A negative result does not rule out the presence of PCR inhibitors in the specimen or target RNA in concentration below the limit of detection for the assay. If only one viral target is positive but coinfection with multiple targets is suspected, the sample should be re-tested with another FDA cleared, approved, or authorized test, if coninfection would change clinical management. This test was validated by the [facility]. These laboratories are certified under the Clinical Laboratory Improvement Amendments of 1988 (CLIA-88) as qualified to perfom high complexity laboratory testing. Anabelle Doe DO LAB - MICRO GENERAL ORDERA BLES Final Result LABORATORY [facility] [address] Lab (1st floor, no room number) [place] [address] * Group A Streptococcus PCR Throat Swab (01/01/2025 4:00 AM CDT) Group A strep by PCR Not Detected Not Detected 01/01/2025 4:28 AM CDT LABORATORY Swab STRUCTURE OF ANTERIOR PORTION OF NECK / Unknown Non-blood Collection / Unknown 01/01/2025 4:00 AM CDT 01/01/2025 4:03 AM CDT [facility] LABORATORY - 01/01/2025 4:28 AM CDT The Xpert Xpress Strep A test, performed on the [employer], is a rapid, qualitative in vitro diagnostic test for the detection of Streptococcus pyogenes (Group A -hemolytic Streptococcus, Strep A) in throat swab specimens from patients with signs and symptoms of pharyngitis. The Xpert Xpress Strep A test can be used as an aid in the diagnosis of Group A Streptococcal pharyngitis. The assay is not intended to monitor treatment for Group A Streptococcus infections. The Xpert Xpress Strep A test utilizes an automated real-time polymerase chain reaction (PCR) to detect Streptococcus pyogenes DNA. Anabelle Doe DO LAB - MICRO GENERAL ORDERA BLES Final Result LABORATORY [facility] [address] Lab (1st floor, no room number) [place] [address] * EKG 12-lead, tracing only (01/01/2025 3:16 AM CDT) Systolic Blood Pressure mmHg RADIOLOGY RESULTS Diastolic Blood Pressure mmHg RADIOLOGY RESULTS Ventricular Rate 87 BPM RAD IOLOGY RESULTS Atrial Rate 87 BPM RADIOLOG Y RESULTS OK Interval 170 ms RADIOLOG Y RESULTS QRS Duration 82 ms RADIOLO GY RESULTS QT 384 ms RADIOLOGY RESULTS QTc 462 ms RADIOLOGY RESULTS P [place] 83 degrees RADIOLOGY RESULTS R AXIS 54 degrees RADIOLOGY RESULTS T [place] 72 degrees RADIOLOGY RESULTS Interpretation ECG Sinus rhythm Minimal voltage criteria for LVH, may be normal variant ( Sokolow-Steen ) Borderline ECG When compared with ECG of 01-Jan-2025 03:01, (unconfirmed) No significant change was found Confirmed by - EMERGENCY ROOM, PHYSICIAN ([id number]), marketing editor FREDDIE BOWER ([id number]) on 01/02/2025 7:09:33 AM RADIOLOGY RESULTS 01/01/2025 3:16 AM CDT 01/02/2025 7:09 AM CDT us Anabelle Doe DO ECG ORDERABLES Edited Res ult - Final RADIOLOGY RESULTS * HCG QUALitative (blood) (01/01/2025 3:16 AM CDT) hCG Serum Qualitative Negative Negative JULIANNA 01/01/2025 3:51 AM CDT [facility] LABORATORY Comment:This test is for scr eening purposes. Results should be interpreted along with the clinical picture. Confirmation testing is available if warranted by ordering [id number], HCG Quantitative . Blood BLOOD SPECIMEN / Unknown Venipuncture / Unknown 01/01/2025 3:16 AM CDT 01/01/2025 3:22 AM CDT us Anabelle Doe DO LAB - BLOOD ORDERABLES Fin al Result [facility] LABORATORY [facility] [address] Lab (1st floor, no room number) [place] [address] * D dimer quantitative (01/01/2025 3:15 AM CDT) Pathologist [facility] D-Dimer Quantitative 0.33 0.00 - 0.50 ug/mL FEU 01/01/2025 3:41 AM CDT [facility] LABORATORY Blood BLOOD SPECIMEN / Unknown Venipuncture / Unknown 01/01/2025 3:15 AM CDT 01/01/2025 3:22 AM CDT [facility] LABORATORY - 01/01/2025 3:41 AM CDT This D-dimer assay is intended for use in conjunction with a clinical pretest probability assessment model to exclude pulmonary embolism (PE) and deep venous thrombosis (DVT) in outpatients suspected of PE or DVT. The cut-off value is 0.50 ug/mL FEU. us Anabelle Doe DO LAB - BLOOD ORDERABLES Fin al Result RH LABORATORY [facility] [address] [facility] Lab (1st floor, no room number) [place] [address] * (ABNORMAL) CBC with platelets and differential (01/01/2025 3:14 AM CDT) [facility] WBC Count 8.0 4.0 - 11.0 10e3/uL 01/01/2025 4:15 AM CDT [facility] LABORATORY RBC Count 5.23(H) 3.80 - 5.20 10e6/uL 01/01/2025 4:15 AM CDT [facility] LABORATORY Hemoglobin 14.6 11.7 - 15.7 g/dL 01/01/2025 4:15 AM CDT [facility] LABORATORY Hematocrit 44.3 35.0 - 47.0 % 01/01/2025 4:15 AM CDT [facility] LABORATORY MCV 85 78 - 100 fL 01/01/2025 4:15 AM CDT [facility] LABORATORY MCH 27.9 26.5 - 33.0 pg 01/01/2025 4:15 AM CDT [facility] LABORATORY MCHC 33.0 31.5 - 36.5 g/dL 01/01/2025 4:15 AM CDT [facility] LABORATORY RDW 13.6 10.0 - 15.0 % 01/01/2025 4:15 AM CDT [facility] LABORATORY Platelet Count 281 150 - 450 10e3/uL 01/01/2025 4:15 AM CDT [facility] LABORATORY % Neutrophils 62 % 01/01/2025 4:15 AM CDT [facility] LABORATORY % Lymphocytes 32 % 01/01/2025 4:15 AM CDT [facility] LABORATORY % Monocytes 5 % 01/01/2025 4:15 AM CDT [facility] LABORATORY % Eosinophils 0 % 01/01/2025 4:15 AM CDT [facility] LABORATORY % Basophils 1 % 01/01/2025 4:15 AM CDT [facility] LABORATORY % Immature Granulocytes 0 % 01/01/2025 4:15 AM CDT [facility] LABORATORY NRBCs per 100 WBC 0 <1 /100 025 4:15 AM CDT [facility] LABORATORY Absolute Neutrophils 4.9 1.6 - 8.3 10e3/uL 01/01/2025 4:15 AM CDT [facility] LABORATORY Absolute Lymphocytes 2.5 0.8 - 5.3 10e3/uL 01/01/2025 4:15 AM CDT [facility] LABORATORY Absolute Monocytes 0.4 0.0 - 1.3 10e3/uL 01/01/2025 4:15 AM CDT [facility] LABORATORY Absolute Eosinophils 0.0 0.0 - 0.7 10e3/uL 01/01/2025 4:15 AM CDT [facility] LABORATORY Absolute Basophils 0.0 0.0 - 0.2 10e3/uL 01/01/2025 4:15 AM CDT [facility] LABORATORY Absolute Immature Granulocytes 0.0 <=0.4 10e3/uL 01/01/2025 4:15 AM CDT [facility] LABORATORY Absolute NRBCs 0.0 10e3/uL 01/01/2025 4:15 AM CDT [facility] LABORATORY Blood BLOOD SPECIMEN / Unknown Venipuncture / Unknown 01/01/2025 3:14 AM CDT 01/01/2025 3:22 AM CDT us Anabelle Doe DO LAB - BLOOD ORDERABLES Fin al Result [facility] LABORATORY [facility] [address] Lab (1st floor, no room number) [place] [address], [facility] * Troponin T, High Sensitivity (01/01/2025 3:14 AM CDT) [facility] Troponin T, High Sensitivity 10 <=14 ng/L 01/01/2025 3:46 AM CDT LABORATORY Comment: Either a High Sensitivity Troponin T baseline (0 hours) value = 100 ng/L, or an increase in High Sensitivity Troponin T = 7 ng/L at 2 hours compared to 0 hours (2-0 hours), suggests myocardial injury, and urgent clinical attention is required. If the 2-0 hours increase is <7 ng/L, a High Sensitivity Troponin T result above gender-specific reference ranges warrants further evaluation. Recommendations for further evaluation include correlation with clinical decision-making tool (e.g., HEART), a 3rd High Sensitivity Troponin T test 2 hours after the 2nd (a 20% change from baseline would represent concern), admission for observation, close PCC/cardiology follow-up, or urgent outpatient provocative testing. Blood BLOOD SPECIMEN / Unknown Venipuncture / Unknown 01/01/2025 3:14 AM CDT 01/01/2025 3:22 AM CDT us Anabelle Doe DO LAB - BLOOD ORDERABLES Fin al Result LABORATORY [facility] [address] [facility] Lab (1st floor, no room number) [place] [address], [facility] * (ABNORMAL) Comprehensive metabolic panel (01/01/2025 3:14 AM CDT) [facility] Sodium 141 135 - 145 mmol/L 01/01/2025 3:46 AM CDT LABORATORY Potassium 4.2 3.4 - 5.3 mmol/L 01/01/2025 3:46 AM CDT LABORATORY Carbon Dioxide (CO2) 20(L) 22 - 29 mmol/L 01/01/2025 3:46 AM CDT LABORATORY Anion Gap 15 7 - 15 mmol/L 01/01/2025 3:46 AM CDT LABORATORY Urea Nitrogen 16.1 6.0 - 20.0 mg/dL 01/01/2025 3:46 AM CDT LABORATORY Creatinine 1.10(H) 0.51 - 0.95 mg/dL 01/01/2025 3:46 AM CDT [facility] LABORATORY GFR Estimate 63 >60 mL/min/1.7 3m2 01/01/2025 3:46 AM CDT [facility] LABORATORY Comment:eGFR calculated us2020 CKD-EPI equation. Calcium 9.8 8.8 - 10.4 mg/dL 01/01/2025 3:46 AM CDT [facility] LABORATORY Chloride 106 98 - 107 mmol/L 01/01/2025 3:46 AM CDT [facility] LABORATORY Glucose 99 70 - 99 mg/dL 01/01/2025 3:46 AM CDT [facility] LABORATORY Alkaline Phosphatase 115 40 - 150 U/L 01/01/2025 3:46 AM CDT [facility] LABORATORY AST 32 0 - 45 U/L 01/01/2025 3:46 AM CDT [facility] LABORATORY ALT 20 0 - 50 U/L 01/01/2025 3:46 AM CDT [facility] LABORATORY Protein Total 7.4 6.4 - 8.3 g/dL 01/01/2025 3:46 AM CDT [facility] LABORATORY Albumin 4.7 3.5 - 5.2 g/dL 01/01/2025 3:46 AM CDT [facility] LABORATORY Bilirubin Total 0.2 <=1.2 mg/dL 01/01/2025 3:46 AM CDT [facility] LABORATORY Blood BLOOD SPECIMEN / Unknown Venipuncture / Unknown 01/01/2025 3:14 AM CDT 01/01/2025 3:22 AM CDT us Anabelle Doe DO LAB - BLOOD ORDERABLES Fin al Result RH LABORATORY [facility] [address] Lab (1st floor, no room number) [place] [address], [facility] * EKG 12 lead (01/01/2025 3:01 AM CDT) Systolic Blood Pressure mmHg RADIOLOGY RESULTS Diastolic Blood Pressure mmHg RADIOLOGY RESULTS Ventricular Rate 96 BPM RAD IOLOGY RESULTS Atrial Rate 96 BPM RADIOLOG Y RESULTS OK Interval 180 ms RADIOLOG Y RESULTS QRS Duration 84 ms RADIOLO GY RESULTS QT 352 ms RADIOLOGY RESULTS QTc 444 ms RADIOLOGY RESULTS P [place] 50 degrees RADIOLOGY RESULTS R AXIS 43 degrees RADIOLOGY RESULTS T [place] 77 degrees RADIOLOGY RESULTS Interpretation ECG Sinus rhythm Possible Left atrial enlargement Nonspecific ST and T wave abnormality Abnormal ECG No previous ECGs available Confirmed by - EMERGENCY ROOM, PHYSICIAN ([id number]), marketing editor FREDDIE BOWER ([id number]) on 01/02/2025 8:12:26 AM RADIOLOGY RESULTS 01/01/2025 3:01 AM CDT 01/02/2025 8:12 AM CDT us Anabelle Doe DO ECG ORDERABLES Edited Res ult - Final RADIOLOGY RESULTS documented in this encounter Visit Diagnoses Diagnosis Chest pain, unspecified type Hypertension, unspecified type documented in this encounter Administered Medications Inactive Administered Medications - up to 3 most recent administrations Medication Order MAR Action Action Date Dose Rate Site acetaminophen (TYLENOL) tablet 1,000 mg 1,000 mg, Oral, ONCE, On 01/01/25 at 0425, For 1 dose, Maximum acetaminophen dose from all sources = 75 mg/kg/day not to exceed 4 gram $Given 01/01/2025 4:36 AM CDT 1,000 mg famotidine (PEPCID) injection 20 mg 20 mg, Intravenous, Administer over 2 Minutes, ONCE, On 01/01/25 at 0315, For 1 dose, For ordered IV doses 1-20 mg, give IV Push diluted with 5-10 mL NS over a minimum of 2 minutes. $Given 01/01/2025 3:19 AM CDT 20 mg LORazepam (ATIVAN) injection 1 mg 1 mg, Intravenous, ONCE, On 01/01/25 at 0315, For 1 dose, IV Route: Dilute with equal volume NS prior to use. This drug may cause significant respiratory depression. Monitor respiratory status and vital signs carefully for 1 hour after each dose. $Given 01/01/2025 3:19 AM CDT 1 mg ondansetron (ZOFRAN) injection 4 mg 4 mg, Intravenous, ONCE, Administer over 2-5 Minutes, On 01/01/25 at 0315, For 1 dose $Given 01/01/2025 3:19 AM CDT 4 mg documented in this encounter Active and Recently Administered Medications Times are shown in CDT. Scheduled Medication Order 12/30/2024 12/31/2024 01/01/2025 acetaminophen (TYLENOL) tablet 1,000 mg (COMPLETED) 1,000 mg, Oral, ONCE, On 01/01/25 at 0425, For 1 dose, Maximum acetaminophen dose from all sources = 75 mg/kg/day not to exceed 4 gram 0436 ($Given - Provi margaret: Agata Yancey RN) famotidine (PEPCID) injection 20 mg (COMPLETED) 20 mg, Intravenous, Administer over 2 Minutes, ONCE, On 01/01/25 at 0315, For 1 dose, For ordered IV doses 1-20 mg, give IV Push diluted with 5-10 mL NS over a minimum of 2 minutes. 0319 ($Given - Provi margaret: Shirley Arvizu RN) LORazepam (ATIVAN) injection 1 mg (COMPLETED) 1 mg, Intravenous, ONCE, On 01/01/25 at 0315, For 1 dose, IV Route: Dilute with equal volume NS prior to use. This drug may cause significant respiratory depression. Monitor respiratory status and vital signs carefully for 1 hour after each dose. 031 ($Given - Provi margaret: Shirley Arvizu RN) ondansetron (ZOFRAN) injection 4 mg (COMPLETED) 4 mg, Intravenous, ONCE, Administer over 2-5 Minutes, On 01/01/25 at 0315, For 1 dose 031 ($Given - Provi margaret: Shirley Arvizu RN) documented in this encounter Additional Health Concerns Infection Onset Date Last Indicated Resolved Time Rule Out COVID-19 01/01/2025 01/01/2025 01/01/2025 4:40 AM CDT documented as of this encounter Care Teams Retail Grocer Relationship Specialty Start Date End Date [facility], [facility] [address] [place] [address] PCP - General 01/01/25 documented as of this encounter
--- OUTSIDE RECORDS SUMMARY | 2025-01-05 07:57 | XMS_ITS | Encounter Summary ---
Author Organization [place] Address [address] [place] [id number] Care Team Providers Care Youth Court Judge Name Role Phone [facility], [facility] Primary Care Prov ider Encounter Details Date Type Department Care Team (Latest Contact Info) Description 01/01/2025 Travel Social History Tobacco Use Types Packs/Day Years Used Date Smoking Tobacco: Never Assessed Comments No Sex and Gender Information Value Date Recorded Sex Assigned at Not on file Legal Sex Female 2:59 AM CDT Gender Identity Not on file Sexual Orientation Not on file documented as of this encounter Plan of Treatment Not on file documented as of this encounter Visit Diagnoses Not on filedocumented in this encounter Additional Health Concerns Infection Onset Date Last Indicated Resolved Time Rule Out COVID-19 01/01/2025 01/01/2025 01/01/2025 4:40 AM CDT documented as of this encounter Care Teams Youth Court Judge Relationship Specialty Start Date End Date [facility], [address] [address] PCP - General 01/01/25 documented as of this encounter
--- OUTSIDE RECORDS SUMMARY | 2025-01-05 07:57 | XMS_ITS | Clinical Summary ---
Author Organization [place] Address [address] [place] [address] Care Team Providers Care Quill Skinner Name Role Phone Clinic, [facility] Primary Care Prov ider Allergies No known active allergies Encounters Date Type Department Care Team Description 01/01/2025 3:03 AM CDT - 01/01/2025 6:22 AM CDT Emergency [facility] Emergency Dept [address] [place] [phone] Anabelle Doe E, Chest pain, unspecified type; Hypertension, unspecified type Discharge Disposition: Home or Self Care 01/01/2025 Travel from Last 3 Months Social History Tobacco Use Types Packs/Day Years [...] - - Body Mass Index - - Plan of Treatment Health Maintenance Due Date Last Done Comments ADVANCE CARE PLANNING 1980 ANNUAL REVIEW OF HM ORDERS 1980 HIV SCREENING 1995 HEPATITIS C SCREENING 1998 HEPATITIS B IMMUNIZATION (1 of 3 - 19+ 3-dose series) 1999 LIPID 2020 PAP 2023 2020 MAMMO SCREENING 05/31/2023 05/31/2021, 05/31/2021 COVID-19 Vaccine (3 - 2023-2 5 season) 2024 06/28/2021, 06/03/2021 INFLUENZA VACCINE (#1) 2024 PHQ-2 (once per calendar year) 2024 YEARLY PREVENTIVE VISIT 05/23/2025 05/23/2024 BMP 01/01/2026 01/01/2025 DIABETES SCREENING 01/02/2028 01/01/2025 ZOSTER IMMUNIZATION (1 of 2) 2030 DTAP/TDAP/TD IMMUNIZATION (2 - Td or Tdap) 06/20/2031 06/20/2021 HPV IMMUNIZATION Aged Out No longer e ligible based on patient's age to complete this topic MENINGITIS IMMUNIZATION Aged Out No l onger eligible based on patient's age to complete this topic Pneumococcal Vaccine: Pediatrics (0 to 5 Years) and At-Risk Patients (6 to 49 Years) Aged Out No longer eligible b ased on patient's age to complete this topic Procedures Procedure Name Priority Date/Time Associated Diagnosis Comments TROPONIN T, HIGH SENSITIVITY STAT 01/01/2025 5:20 AM CDT XR CHEST 2 VIEWS STAT 01/01/2025 4:14 AM CDT GROUP A STREPTOCOCCUS PCR THROAT SWAB STAT 01/01/2025 4:00 AM CDT INFLUENZA A/B, RSV AND SARS-COV2 PCR STAT 01/01/2025 4:00 AM CDT EKG 12-LEAD, TRACING ONLY STAT 01/01/2025 3:16 AM CDT HCG QUALITATIVE STAT 01/01/2025 3:16 AM CDT D DIMER QUANTITATIVE STAT 01/01/2025 3:15 AM CDT CBC WITH PLATELETS & DIFFERENTIAL STAT 01/01/2025 3:14 AM CDT CBC WITH PLATELETS AND DIFFERENTIAL STAT 01/01/2025 3:14 AM CDT TROPONIN T, HIGH SENSITIVITY STAT 01/01/2025 3:14 AM CDT COMPREHENSIVE METABOLIC PANEL STAT 01/01/2025 3:14 AM CDT EKG 12-LEAD, TRACING ONLY STAT 01/01/2025 3:01 AM CDT from Last 3 Months Results * Troponin T, High Sensitivity (01/01/2025 5:20 AM CDT) Only the most recent of2 resultswithin the time period is included. [facility] Troponin T, High Sensitivity 9 <=14 ng/L [...] LAB - BLOOD ORDERABLES Fin al Result [facility] Acute [facility] Lab [address] Lab (1st floor, no room number) [place] [address], [facility] * XR Chest 2 Views (01/01/2025 4:14 AM CDT) Anatomical Region Laterality Modality Chest Digital Radiogra phy 01/01/2025 4:14 AM CDT Impressions 01/01/2025 4:16 AM CDT IMPRESSION: Negative chest. Narrative 01/01/2025 4:16 AM CDT EXAM: XR CHEST 2 VIEWS LOCATION: [facility] DATE: 01/01/2025 INDICATION: chest pain COMPARISON: None. Procedure Note Laron Rangel MD - 01/01/2025 EXAM: XR CHEST 2 VIEWS LOCATION: [facility] DATE: 01/01/2025 INDICATION: chest pain COMPARISON: None. IMPRESSION: Negative chest. Anabelle Doe DO [facility] ORD ERABLES Final Result * Influenza A/B, RSV and SARS-CoV2 PCR (COVID-19) Nasopharyngeal (01/01/2025 4:00 AM CDT) Pathologist [facility] Influenza A PCR Negative Negative 01/01/2025 4:40 [...] 4:00 AM CDT 01/01/2025 4:03 AM CDT [facility] LABORATORY - 01/01/2025 4:40 AM CDT Testing was performed using the Xpert Xpress CoV2/Flu/RSV Assay on the [employer]pert Instrument. This test should be ordered for [...] management. This test was validated by the [facility] [employer]. These laboratories are certified under the Clinical Laboratory Improvement Amendments of 1988 (CLIA-88) as qualified to perfom high complexity laboratory testing. Anabelle Sunni DangDoe LAB - MICRO GENERAL ORDERA BLES Final Result Performing Organization Address City/[facility]/ZIP Co de Phone Number LABORATORY [facility] [address] Lab (1st floor, no room number) [place] [address] * Group A Streptococcus PCR Throat Swab (01/01/2025 4:00 AM CDT) Group A strep by PCR Not Detected Not Detected 01/01/2025 4:28 AM CDT LABORATORY Swab STRUCTURE OF ANTERIOR PORTION OF NECK / Unknown Non-blood Collection / Unknown 01/01/2025 4:00 AM CDT 01/01/2025 4:03 AM CDT [facility] LABORATORY - 01/01/2025 4:28 AM CDT The Xpert Xpress Strep A test, performed on the [employer] Instrument Systems, is a rapid, qualitative in [...] (PCR) to detect Streptococcus pyogenes DNA. Anabelle Sunni Doe DO [facility] - MICRO GENERAL ORDERA BLES Final Result Performing Organization Address City/[facility]/ZIP Co de Phone Number LABORATORY [facility] [address] Lab (1st floor, no room number) [place] [address], [facility] * EKG 12-lead, tracing only (01/01/2025 3:16 AM CDT) Only the most recent of2 resultswithin the time period is included. Systolic Blood Pressure mmHg RADIOLOGY RESULTS Diastolic Blood Pressure mmHg RADIOLOGY RESULTS Ventricular Rate 87 BPM RAD IOLOGY RESULTS Atrial Rate 87 BPM RADIOLOG Y RESULTS TN Interval 170 ms RADIOLOG Y RESULTS QRS Duration 82 ms RADIOLO GY RESULTS QT 384 ms RADIOLOGY RESULTS QTc 462 ms RADIOLOGY RESULTS P [place] 83 degrees RADIOLOGY RESULTS R AXIS 54 degrees RADIOLOGY RESULTS T [place] 72 degrees RADIOLOGY RESULTS Interpretation ECG Sinus rhythm Minimal voltage criteria for LVH, may be normal variant ( Sokolow-Steen ) Borderline ECG When compared with ECG of 01-Jan-2025 03:01, (unconfirmed) No significant change was found Confirmed by - EMERGENCY ROOM, PHYSICIAN ([id number]), technical editor FREDDIE BOWER ([id number]) on 01/02/2025 7:09:33 AM RADIOLOGY RESULTS 01/01/2025 3:16 AM CDT 01/02/2025 7:09 AM CDT us Anablele Doe DO ECG ORDERABLES Edited Res ult - Final RADIOLOGY RESULTS * HCG QUALitative (blood) (01/01/2025 3:16 AM CDT) hCG Serum Qualitative Negative Negative JULIANNA 01/01/2025 3:51 AM CDT LABORATORY Comment:This test is for scr eening purposes. Results should be interpreted along with the clinical picture. Confirmation testing is available if warranted by ordering [id number], HCG Quantitative . Blood BLOOD SPECIMEN / Unknown Venipuncture / Unknown 01/01/2025 3:16 AM CDT 01/01/2025 3:22 AM CDT Anabelle Doe DO LAB - BLOOD ORDERABLES Fin al Result [facility] LABORATORY [facility] Acute [facility] Lab [address] Lab (1st floor, no room number) [place] [address] * D dimer quantitative (01/01/2025 3:15 AM CDT) D-Dimer Quantitative 0.33 0.00 - 0.50 ug/mL FEU 01/01/2025 3:41 AM CDT [facility] LABORATORY Blood BLOOD SPECIMEN / Unknown Venipuncture / Unknown 01/01/2025 3:15 AM CDT 01/01/2025 3:22 AM CDT Narrative [facility] LABORATORY - 01/01/2025 3:41 AM CDT This D-dimer assay is intended for use in conjunction with a clinical pretest probability assessment model to exclude pulmonary embolism (PE) and deep venous thrombosis (DVT) in outpatients suspected of PE or DVT. The cut-off value is 0.50 ug/mL FEU. us Anabelle Doe DO LAB - BLOOD ORDERABLES Fin al Result [facility] LABORATORY [facility] [address] [facility] Lab (1st floor, no room number) [place] [address] * (ABNORMAL) CBC with platelets and differential (01/01/2025 3:14 AM CDT) Pathologist [facility] WBC Count 8.0 4.0 - 11.0 10e3/uL [...] - BLOOD ORDERABLES Fin al Result LABORATORY [facility] [address] Lab (1st floor, no room number) [place] [address], [facility] * (ABNORMAL) Comprehensive metabolic panel (01/01/2025 3:14 AM CDT) Sodium 141 135 - 145 mmol/L 01/01/2025 3:46 AM CDT [facility] LABORATORY Potassium 4.2 3.4 - 5.3 mmol/L 01/01/2025 3:46 AM CDT LABORATORY Carbon Dioxide (CO2) 20(L) 22 - 29 mmol/L 01/01/2025 3:46 AM CDT LABORATORY Anion Gap 15 7 - 15 mmol/L 01/01/2025 3:46 AM CDT LABORATORY Urea Nitrogen 16.1 6.0 - 20.0 mg/dL 01/01/2025 3:46 AM CDT LABORATORY Creatinine 1.10(H) 0.51 - 0.95 mg/dL 01/01/2025 3:46 AM CDT LABORATORY GFR Estimate 63 >60 mL/min/1.7 3m2 01/01/2025 3:46 AM CDT LABORATORY Comment:eGFR calculated usin 2020 CKD-EPI equation. Calcium 9.8 8.8 - 10.4 mg/dL 01/01/2025 3:46 AM CDT LABORATORY Chloride 106 98 - 107 mmol/L 01/01/2025 3:46 AM CDT LABORATORY Glucose 99 70 - 99 mg/dL 01/01/2025 3:46 AM CDT LABORATORY Alkaline Phosphatase 115 40 - 150 U/L 01/01/2025 3:46 AM CDT LABORATORY AST 32 0 - 45 U/L 01/01/2025 3:46 AM CDT LABORATORY ALT 20 0 - 50 U/L 01/01/2025 3:46 AM CDT LABORATORY Protein Total 7.4 6.4 - 8.3 g/dL 01/01/2025 3:46 AM CDT LABORATORY Albumin 4.7 3.5 - 5.2 g/dL 01/01/2025 3:46 AM CDT LABORATORY Bilirubin Total 0.2 <=1.2 mg/dL 01/01/2025 3:46 AM CDT LABORATORY Blood BLOOD SPECIMEN / Unknown Venipuncture / Unknown 01/01/2025 3:14 AM CDT 01/01/2025 3:22 AM CDT us Anabelle Doe DO LAB - BLOOD ORDERABLES Fin al Result LABORATORY [facility] [address] Lab (1st floor, no room number) [place] [address], [facility] from Last 3 Months Care Teams Quill Skinner Relationship Specialty Start Date End Date [facility], [facility] [address] [place] [address] PCP - General 01/01/25
[2025-01-05 08:00] VITALS: BP 187/112; PULSE 61; RESP 18; TEMP 36.7; O2SAT 99; BMI 27.2
[2025-01-05] MEDS: KETOROLAC 30 MG/ML inj IM (08:25)
--- OUTSIDE RECORDS SUMMARY | 2025-01-05 08:25 | XMS_ITS ---
Author Organization [facility] Address [address] [place] [address] Care Team Providers Care Pricing Clerk Name Role Phone Venkat Hall M.D. Primary Care Provider Bariatrics Program Status:Enrolled (Active) Start date:02/13/2022 Enrollment date:02/13/2022 Enrollment reason:Referred by provider Current support & services provided:Post-Op Related social drivers of health:Food Insecurity, Transportation Needs Overview RNJhoan; DOS: 05/26/2023 04/22/24 pt states she lives in [place], [place] now. Wants to stay in [facility]- reached out to [facility] to clarify if possible. WLP Continued Care and Services Coordination
--- OUTSIDE RECORDS SUMMARY | 2025-01-05 08:25 | XMS_ITS | Clinical Summary ---
Author Organization [facility] Address [address] [place] [address] Care Team Providers Care Choir Teacher Name Role Phone Venkat Hall M.D. Primary Care Provider Source Comments Patient records contain information from all sites at [facility]. For routine questions regarding patient records, call [phone] during business hours, M-F 8:00 AM - 5:00 PM Central Time. Record requests for emergency care only can be directed to [phone] at any time.[facility] Allergies No known active allergies Medications * [...] by mouth once daily. [facility] Petra Active DULoxetine (Cymbalta) [address] [...] (06/20/2021): Added automatically from request for surgery [id number] Diverticulitis Colon 06/09/2021 Depression Major Recurrent Moderate [...] Team Description 01/04/2025 Clinical Communication Department of [place], [place] [address] [place] [address] Indu Broussard R.N. Quality (D5) 12/16/2024 10:40 AM CDT Office Visit Department of Family [facility], [facility], [place], [place] [address] [place] [address] Venkat Hall M.D. Dysplasia Fibromuscular Arterial (Primary Dx); Depression Major Recurrent Moderate (HCC); Diabetes Mellitus Type 2 With Other Complication (HCC); Hypertension Essential Primary; Attention Deficit With Hyperactivity Disorder; Bipolar II Disorder (HCC) 12/16/2024 Clinical Communication Department of Family Medicine, [facility], [address] [address] Venkat Hall M.D. Med Question (Change pharmacy) 12/14/2024 Refill Department of [facility], [place], [facility], [address] [address] Venkat Hall M.D. Med Refill 11/18/2024 Refill Department of [facility], [place], [facility], [address] [address] Venkat Hall M.D. Med Refill 11/17/2024 Refill Department of [facility], [address] [address] Venkat Hall M.D. Med Refill 10/16/2024 Refill Department of [facility], [address] [address] Venkat Hall M.D. Med Refill from Last [...] e alcohol) does not drink at all [facility] Utilities Answer Date Recorded In the past 12 months has e [employer], gas, oil, or water [employer] threatened to shut off services in your [...] often do you attend chur ch or mormonism services? 1 to 4 times per year 02/03/2023 Do you belong to any clubs o r organizations such as buddhism groups, unions, fraternal or athletic groups, or [...] Answer Date Recorded PHQ-2 Score 2 12/15/2024 [facility] - Occupational Stress Questionnaire Answer Date Recorded [...] your living situation today? I have a [facility] place to live 05/19/2024 Education Answer Date Recorded What is the highest level of school you have completed or the highest degree you have received? Associate degree: occupational, technical, or vocational program 02/03/2023 Comments Unknown Sex and Gender Information Value Date Recorded Sex Assigned at Female 05/31/2021 4:29 AM CDT Legal Sex Female 11:05 AM DIRECTOR INDUSTRIAL RELATIONS Gender Identity Female 11/08/2020 5:40 PM DIRECTOR INDUSTRIAL RELATIONS Sexual Orientation Straight 11/08/2020 5: 40 PM DIRECTOR INDUSTRIAL RELATIONS Last Filed Vital Signs Vital Sign Reading [...] this topic Medical Devices Implanted Type Area Engineering Professor Device Identifier Shelf Expiration Date Model / Serial / Lot Intrauterine Device Intrauterine Device Uterus Description:IUD- merana Procedures Procedure Name Priority Date/Time Associated Diagnosis Comments ALBUMIN, RANDOM, U Routine 10/22/2023 3: 22 PM DIRECTOR INDUSTRIAL RELATIONS Diabetes Mellitus Type 2 With Other Complication Hyperglycemic (HCC) LIPID PANEL, S Routine 10/22/2023 3:20 PM DIRECTOR INDUSTRIAL RELATIONS Diabetes Mellitus Type 2 With Other Complication Hyperglycemic (HCC) COMPREHENSIVE METABOLIC PANEL, S/P Routine 10/22/2023 3:20 PM DIRECTOR INDUSTRIAL RELATIONS Gastric Bypass Status Post HEMOGLOBIN A1C, B Routine 09/07/2023 9:4 0 AM DIRECTOR INDUSTRIAL RELATIONS Diabetes Mellitus Type 2 With Other Complication Hyperglycemic (HCC) BI BREAST SCREENING BILATERAL WITH TOMOSYNTHESIS RAD - Routine (most inpatients and all outpatients) 05/31/2021 3:47 PM CDT Screening Mammogram Breast Cancer THINPREP W/HPV CO-TEST SCREEN Routine 2020 3:14 PM CDT Pap Smear Examination from Last 3 Months or Most Recently Relevant to Health Maintenance Results * Albumin, Random, Urine (10/22/2023 3:22 PM DIRECTOR INDUSTRIAL RELATIONS) Microalbumin <12.0 mg/L 10/22/2023 3:59 PM DIRECTOR INDUSTRIAL RELATIONS MNMN Comment:If clinically indica janelle, contact the lab for additional testing. Creatinine 159 mg/dL 10/22/2023 3:59 PM DIRECTOR INDUSTRIAL RELATIONS MNMN Albumin/Creatinine Ratio <8 <25 mg/g 10/22/2023 3:59 PM DIRECTOR INDUSTRIAL RELATIONS MNMN Comment: This ratio may not correspond with the reference range because one or both of the values used to calculate the ratio was above or below the quantification limits. Urine (Urine, Midstream) 10/22/2023 3:22 PM DIRECTOR INDUSTRIAL RELATIONS 10/22/2023 3:29 PM DIRECTOR INDUSTRIAL RELATIONS us Gen Richardson M.D. LAB URINE ORDERABLES Fin al Result [facility] [address] [place] [address] MNMN [facility] [place] [address] * Lipid Panel (10/22/2023 3:20 PM DIRECTOR INDUSTRIAL RELATIONS) Triglycerides 69 mg/dL 10/22/2023 3:57 PM DIRECTOR INDUSTRIAL RELATIONS MNMN Comment: ----REFERENCE VALUE---- Normal: <150 mg/dL Borderline High: 150-199 mg/dL High: 200-499 mg/dL Very High: > or =500 mg/dL Cholesterol, Total 190 mg/dL 2023 3:57 PM DIRECTOR INDUSTRIAL RELATIONS MNMN Comment: ----REFERENCE VALUE---- Desirable: < 200 mg/dL Borderline High: 200 - 239 mg/dL High: > or = 240 mg/dL Cholesterol, LDL, Calculated 122 mg/dL 10/22/2023 3:57 PM DIRECTOR INDUSTRIAL RELATIONS MNMN Comment: ----REFERENCE VALUE---- Desirable: <100 mg/dL Above Desirable: 100-129 mg/dL Borderline High: 130-159 mg/dL High: 160-189 mg/dL Very High: >=190 mg/dL ----ADDITIONAL INFORMATION---- LDL cholesterol calculated using the Ramon/NIH equation. Cholesterol, HDL 55 >=50 mg/dL 10/22/19 3:57 PM DIRECTOR INDUSTRIAL RELATIONS MNMN Cholesterol, Non-HDL, Calculated 135 mg/dL 10/22/2023 3:57 PM DIRECTOR INDUSTRIAL RELATIONS MNMN Comment: ----REFERENCE VALUE---- Desirable: <130 mg/dL Above Desirable: 130-159 mg/dL Borderline High: 160-189 mg/dL High: 190-219 mg/dL Very High: > or =220 mg/dL Fasting (8 HR or more) y 10/22/2023 3:29 PM DIRECTOR INDUSTRIAL RELATIONS MNMN Blood (Blood, Venous) 10/22/2023 3:20 PM DIRECTOR INDUSTRIAL RELATIONS 10/22/2023 3:29 PM DIRECTOR INDUSTRIAL RELATIONS us Gen Richardson M.D. LAB BLOOD ADD-ON Final R esult [facility] [address] [place] [address], [facility] MNMN [facility] [place] [address] * (ABNORMAL) Hemoglobin A1c (09/07/2023 9:40 AM DIRECTOR INDUSTRIAL RELATIONS) Hemoglobin A1c, B 5.7(H) 4.2 - 5.6 % 09/07/2023 10:05 AM DIRECTOR INDUSTRIAL RELATIONS MNMN Comment: Hemoglobin A1c values of 5.7-6.4 percent indicate an increased risk for developing diabetes mellitus. In diabetic patients, HbA1c goals should be discussed with healthcare provider. Blood (Blood, Venous) 09/07/2023 9:40 AM DIRECTOR INDUSTRIAL RELATIONS 09/07/2023 9:46 AM DIRECTOR INDUSTRIAL RELATIONS Gen Richardson M.D. LAB BLOOD ADD-ON Final R esult [facility] [address] [place] [address], [facility] MNMN [facility] [place] [address] * BI Breast Screening Bilateral with Tomosynthesis [...] performed on the liquid-based cytology specimen at [facility], [place], [place]. 04/10/2020 12:26 PM CDT ECLR Report electronically signed by SHELIA Matrinez(ASCP) I verify that I have examined all [...] LAB PAP PATHDX EDE WHITTAKER Final Result [facility] [address] [place] [address], [facility] ECLR [facility] in [address] [address] from Last 3 Months or Most Recently Relevant to Health Maintenance Advance Directives For more information, please contact: [phone] Documents on File Type Date Recorded Patient Psychometric Examiner Expl anation Advance Directives 05/27/2023 11:57 AM [...] First Alternate Health Care Agent Care Teams Choir Teacher Relationship Specialty Start Date End Date Venkat Hall M.D. [address] [place] [phone] PCP - General Family Medicine 04/14/24
--- OUTSIDE RECORDS SUMMARY | 2025-01-05 08:25 | XMS_ITS | Encounter Summary ---
Author Organization [facility] Address [address] [place] [address] Care Team Providers Care Administrator Name Role Phone Venkat Hall M.D. Primary Care Provider [phone] Reason for Visit * Reason Onset Date Comments Med Refill 12/14/2024 Encounter Details Date Type Department Care Team (Late st Contact Info) Description 12/14/2024 Refill Department of Family Medicine, [facility], in [place], [place] [address] [place] [address] Venkat Hall M.D. [address] [place] [phone] Med Refill Social History Tobacco Use Types Packs/Day Years Used Date Smoking Tobacco: Former Cigarettes 1 11/05/2007 - 06/05/2021 Smokeless Tobacco: Never Comments:Never smoked heavil y or even daily. Alcohol Use Standard Drinks/Week Comments Never 0 (1 standard drink = 0.6 oz pur e alcohol) does not drink at all [facility] Utilities Answer Date Recorded In [...] often do you attend chur ch or scientologist services? 1 to 4 times per year 02/03/2023 Do you belong to any clubs o r organizations such as presybeterian groups, unions, fraternal or athletic groups, or [...] Answer Date Recorded PHQ-2 Score 2 12/15/2024 [facility] of Occupat ional Health - Occupational Stress [...] living situation today? I have a [facility] place to live 05/19/2024 Education Answer Date Recorded What is the highest level of school you have completed or the highest degree you have received? Associate degree: occupational, technical, or vocational program 02/03/2023 Comments No Sex and Gender Information Value Date Recorded Sex Assigned at Female 05/31/2021 4:29 AM CDT Legal Sex Female 11:05 AM INTERNATIONAL SALES MANAGER Gender Identity Female 11/08/2020 5:40 PM INTERNATIONAL SALES MANAGER Sexual Orientation Straight 11/08/2020 5: 40 PM INTERNATIONAL SALES MANAGER documented as of this encounter Miscellaneous Notes [...] documented as of this encounter Care Teams Administrator Relationship Specialty Start Date End Date Venkat Hall M.D. [address] [place] [phone] PCP - General Family Medicine 04/14/24 documented as of this encounter
--- OUTSIDE RECORDS SUMMARY | 2025-01-05 08:25 | XMS_ITS | Clinical Summary ---
Author Organization [facility] Address [address] [place] [address] Care Team Providers Care Fire Assistant Name Role Phone Gen Richardson Primary Care Provider [phone] Allergies No known active allergies Active Problems [...] 2024 Insurance KELVIN LING MA Care Teams Fire Assistant Relationship Specialty Start Date End Date Gen Richardson [address] [place] [address] PCP - General Family Practice 02/20/24
--- OUTSIDE RECORDS SUMMARY | 2025-01-05 08:25 | XMS_ITS | Encounter Summary ---
Author Organization [facility] Address [address] [place] [address] Care Team Providers Care Telephone Solicitor Name Role Phone Venkat Hall M.D. Primary Care Provider [phone] Reason for Visit * Reason Onset Date Comments Quality 01/04/2025 D5 Encounter Details Date Type Department Care Team (Late st Contact Info) Description 01/04/2025 Clinical Communication Department of Family Medicine, [facility], in [address] [address] Indu Broussard R.N. Quality (D5) Social History Tobacco Use Types Packs/Day Years Used Date Smoking Tobacco: Former Cigarettes 1 11/05/2007 - 06/05/2021 Smokeless Tobacco: Never Comments:Never smoked heavil y or even daily. Alcohol Use Standard Drinks/Week Comments Never 0 (1 standard drink = 0.6 oz pur e alcohol) does not drink at all [facility] Utilities Answer Date Recorded In the [...] often do you attend chur ch or temple services? 1 to 4 times per year 02/03/2023 Do you belong to any clubs o r organizations such as cheondoism groups, unions, fraternal or athletic groups, or [...] Answer Date Recorded PHQ-2 Score 2 12/15/2024 [facility] of Occupat ional Health - Occupational Stress [...] your living situation today? I have a [facility] place to live 05/19/2024 Education Answer Date Recorded What is the highest level of school you have completed or the highest degree you have received? Associate degree: occupational, technical, or vocational program 02/03/2023 Comments Unknown Sex and Gender Information Value Date Recorded Sex Assigned at Female 05/31/2021 4:29 AM CDT Legal Sex Female 11:05 AM ELECTRICIAN SHIP Gender Identity Female 11/08/2020 5:40 PM ELECTRICIAN SHIP Sexual Orientation Straight 11/08/2020 5: 40 PM ELECTRICIAN SHIP documented as of this encounter Plan of Treatment Not on file documented as of this encounter Visit Diagnoses Not on filedocumented in this encounter Additional Health Concerns Assessment Noted Time PHQ-9 Depression Total Score: 8 05/23/20 24 1:28 PM CDT documented as of this encounter Care Teams Telephone Solicitor Relationship Specialty Start Date End Date Venkat Hall M.D. [address] [place] [address] [place] [phone] PCP - General Family Medicine 04/14/24 documented as of this encounter
--- OUTSIDE RECORDS SUMMARY | 2025-01-05 08:25 | XMS_ITS | Encounter Summary ---
Author Organization [facility] Address [address] [place] [address] Care Team Providers Care Filler Wiper Name Role Phone Venkat Hall M.D. Primary Care Provider [phone] Reason for Referral * Outpatient (Routine) - Authorized Specialty Diagnoses / Procedures Referred By Kacey edge Referred To Contact Venkat Hall M.D. [address] [place] [address] Phone: tel: fax: [facility] Region Referral ID Status Reason Start Date Expiration Date V isits Requested Visits Authorized [id number] Authorized 12/16/2024 06/17/2026 1 1 Reason for Visit * Reason Comments Fatigue X 2 WEEKS Headache X 1 WEEK * Appointment Request (Routine) - Pending Review Specialty Diagnoses / Procedures Referred By Kacey edge Referred To Contact Family Medicine Referral ID Status Reason Start Date Expiration Date V isits Requested Visits Authorized [id number] Pending Review 12/12/2024 03/14/2026 1 1 Encounter Details Date Type Department Care Team (Latest Contact Info) Description 12/16/2024 10:40 AM CDT Office Visit Department of Family Medicine, [facility], in [place], [place] [address] [place] [address] Venkat Hall M.D. [address] [facility] [place] [address] Dysplasia Fibromuscular Arterial (Primary Dx); Depression Major [...] e alcohol) does not drink at all [facility] Utilities Answer Date Recorded In the past 12 months has [employer], gas, oil, or water [employer] threatened to shut off services in your [...] declined 02/03/2023 How often do you attend [facility] or anabaptist services? 1 to 4 times per year 02/03/2023 Do you belong to any clubs o r organizations such as mosque groups, unions, fraternal or athletic groups, or [...] Answer Date Recorded PHQ-2 Score 2 12/15/2024 [facility] of Occupat ional [facility] - Occupational Stress Questionnaire Answer Date [...] your living situation today? I have a [facility] place to live 05/19/2024 Education Answer Date Recorded What is the highest level of school you have completed or the highest degree you have received? Associate degree: occupational, technical, or vocational program 02/03/2023 Comments Unknown Sex and Gender Information Value Date Recorded Sex Assigned at Female 05/31/2021 4:29 AM CDT Legal Sex Female 11:05 AM ELECTRIC GOLF CART REPAIRER Gender Identity Female 11/08/2020 5:40 PM ELECTRIC GOLF CART REPAIRER Sexual Orientation Straight 11/08/2020 5: 40 PM ELECTRIC GOLF CART REPAIRER documented as of this encounter Last Filed [...] Mental health history: Under psychiatric care through [facility] - Previous successful treatment with Adderall 30mg [...] - Primary Care nurse visit (clinic) - [facility] Region; BP check; BP check w/ home [...] Take 1 tablet by mouth once daily. [facility], Disp: , Rfl: lamoTRIgine (LaMICtaL) 100 mg [...] daily, Disp: 90 tablet, Rfl: 3 pediatric spgipcvcrcjm-cfwy-roplvzcd (Flintstones Complete) chewable tablet, Chew 1 tablet [...] Schedule Primary Care nurse visit (clinic) - [facility] Region; BP check; BP check w/ home [...] documented as of this encounter Care Teams Filler Wiper Relationship Specialty Start Date End Date Venkat Hall M.D. [address] [place] [address] [place] [phone] PCP - General Family Medicine 04/14/24 documented as of this encounter
--- OUTSIDE RECORDS SUMMARY | 2025-01-05 08:25 | XMS_ITS | Encounter Summary ---
Author Organization [facility] Address [address] [place] [address] Care Team Providers Care Rabbit Fancier Name Role Phone Venkat Hall M.D. Primary Care Provider Reason for Visit * Reason Onset Date Comments Med Question 12/16/2024 Change pharmacy Encounter Details Date Type Department Care Team (Latest Contact Info) Description 12/16/2024 Clinical Communication Department of Family Medicine, [facility], in [place], [place] [address] [place] [address] Venkat Hall M.D. [address] [place] [phone] Med Question (Change pharmacy) Social History Tobacco Use Types Packs/Day Years Used Date Smoking Tobacco: Former Cigarettes 1 11/05/2007 - 06/05/2021 Smokeless Tobacco: Never Comments:Never smoked heavil y or even daily. Alcohol Use Standard Drinks/Week Comments Never 0 (1 standard drink = 0.6 oz pur e alcohol) does not drink at all [facility] Utilities Answer Date Recorded In the [...] How often do you attend chur or rastafarian services? 1 to 4 times per year 02/03/2023 Do you belong to any clubs o r organizations such as holiness groups, unions, fraternal or athletic groups, or [...] Answer Date Recorded PHQ-2 Score 2 12/15/2024 [facility] of Occupat ional Health - Occupational Stress [...] your living situation today? I have a [facility] place to live 05/19/2024 Education Answer Date Recorded What is the highest level of school you have completed or the highest degree you have received? Associate degree: occupational, technical, or vocational program 02/03/2023 Comments Unknown Sex and Gender Information Value Date Recorded Sex Assigned at Female 05/31/2021 4:29 AM CDT Legal Sex Female 11:05 AM MACHINE STRIPPER CUTTER Gender Identity Female 11/08/2020 5:40 PM MACHINE STRIPPER CUTTER Sexual Orientation Straight 11/08/2020 5: 40 PM MACHINE STRIPPER CUTTER documented as of this encounter Miscellaneous Notes * Telephone Encounter - Margaret Minor L.PGlendyN. - 12/16/2024 2:09 PM CDT This was taken care of in another message and RX for Adderall was sent to [facility] in [place] documented in this encounter Plan of Treatment Not on file documented as of this encounter Visit Diagnoses Not on filedocumented in this encounter Additional Health Concerns Assessment Noted Time PHQ-9 Depression Total Score: 8 05/23/20 24 1:28 PM CDT documented as of this encounter Care Teams Rabbit Fancier Relationship Specialty Start Date End Date Venkat Hall M.D. [address] [place] [phone] PCP - General Family Medicine 04/14/24 documented as of this encounter
--- OUTSIDE RECORDS SUMMARY | 2025-01-05 08:25 | XMS_ITS | Encounter Summary ---
Author Organization [facility] Address [address] [place] [address] Care Team Providers Care Block Handler Name Role Phone Venkat Hall M.D. Primary Care Provider Reason for Visit * Reason Comments Med Refill Encounter Details Date Type Department Care Team (Late st Contact Info) Description 11/18/2024 Refill Department of Family Medicine, [facility], in [place], [place] [address] [place] [address] Venkat Hall M.D. [address] [place] [address] Med Refill Social History Tobacco Use Types Packs/Day Years Used Date Smoking Tobacco: Former Cigarettes 1 11/05/2007 - 06/05/2021 Smokeless Tobacco: Never Comments:Never smoked heavil y or even daily. Alcohol Use Standard Drinks/Week Comments Never 0 (1 standard drink = 0.6 oz pur e alcohol) does not drink at all [facility] Utilities Answer Date Recorded In the past [...] often do you attend chur ch or mandaeism services? 1 to 4 times per year 02/03/2023 Do you belong to any clubs o r organizations such as jehovah's witness groups, unions, fraternal or athletic groups, or [...] Answer Date Recorded PHQ-2 Score 0 05/23/2024 [facility] of Occupat ional Health - Occupational Stress [...] your living situation today? I have a [facility] place to live 05/19/2024 Education Answer Date Recorded What is the highest level of school you have completed or the highest degree you have received? Associate degree: occupational, technical, or vocational program 02/03/2023 Comments No Sex and Gender Information Value Date Recorded Sex Assigned at Female 05/31/2021 4:29 AM CDT Legal Sex Female 11:05 AM MICROSOFT DEVELOPER Gender Identity Female 11/08/2020 5:40 PM MICROSOFT DEVELOPER Sexual Orientation Straight 11/08/2020 5: 40 PM MICROSOFT DEVELOPER documented as of this encounter Miscellaneous Notes * Telephone Encounter - Jerilyn Mccain - 11/21/2024 3:03 PM CST Duplicate-addressed in another encounter OSOFT DEVELOPER documented in this encounter Plan of Treatment Not on file documented as of this encounter Visit Diagnoses Not on filedocumented in this encounter Additional Health Concerns Assessment Noted Time PHQ-9 Depression Total Score: 8 05/23/20 24 1:28 PM CDT documented as of this encounter Care Teams Block Handler Relationship Specialty Start Date End Date Venkat Hall M.D. [address] [place], [place] [address] [phone] PCP - General Family Medicine 04/14/24 documented as of this encounter
--- OUTSIDE RECORDS SUMMARY | 2025-01-05 08:26 | XMS_ITS | Encounter Summary ---
Author Organization [facility] Address [address] [place] [address] Care Team Providers Care Photo Engraver Name Role Phone Clinic, [facility] Primary Care Prov ider Reason for Visit * Reason Comments Chest Pain Encounter Details Date Type Department Care Team (Late st Contact Info) Description 01/01/2025 3:03 AM CDT - 01/01/2025 6:22 AM CDT Emergency [facility] Emergency Dept [address] [place] [phone] Anabelle Doe, DO [facility] [address] [place] [address] Chest pain, unspecified type; Hypertension, unspecified type [...] sent through Care Everywhere. * Chest Pain (Georgian) documented in this encounter ED Notes * [...] has an IUD. No family history early [place]. Patient reports reading about a heart attack [...] Pressure Ventricular Rate 87 Atrial Rate 87 DE Interval 170 QRS Duration 82 QT 384 QTc 462 P Cantril 83 R AXIS 54 T Cantril 72 Interpretation ECG Sinus rhythm Minimal voltage [...] ED Course ED Course as of 01/01/25357 [place] Jan 01, 2025 035 Patient reports much improvement though also notes now having sore throat Additional Documentation None Medical Decision Making / Diagnosis [facility] Diagnoses: None MIPS None [facility] Lucita Reddy is a 44 year old [...] dying. You need to help her now. Manager [employer] obtained wheelchair to get to the car. screaming at singer songwriter not moving fast enough. Manager [employer] attempted to ask questions outside. stated, weren't [...] T, High Sensitivity (01/01/2025 5:20 AM CDT) [facility] Troponin T, High Sensitivity 9 <=14 [...] - BLOOD ORDERABLES Fin al Result LABORATORY [facility] Acute Care Lab [address] Lab (1st floor, no room number) [place] [address], [place] * XR Chest 2 Views (01/01/2025 4:14 AM CDT) Anatomical Region Laterality Modality Chest Digital Radiogra phy 01/01/2025 4:14 AM CDT Impressions 01/01/2025 4:16 AM CDT IMPRESSION: Negative chest. Narrative 01/01/2025 4:16 AM CDT EXAM: XR CHEST 2 VIEWS LOCATION: [facility] DATE: 01/01/2025 INDICATION: chest pain COMPARISON: None. Procedure Note Laron Rangel MD - 01/01/2025 EXAM: XR CHEST 2 VIEWS LOCATION: [facility] DATE: 01/01/2025 INDICATION: chest pain COMPARISON: None. IMPRESSION: Negative chest. Anabelle Doe DO IMG DIAGNOSTIC IMAGING ORD ERABLES Final Result * Influenza A/B, RSV and SARS-CoV2 PCR (COVID-19) Nasopharyngeal (01/01/2025 4:00 AM CDT) [facility] Influenza A PCR Negative Negative 01/01/2025 4:40 [...] the Xpert Xpress CoV2/Flu/RSV Assay on the [employer] GeneXpert Instrument. This test should be ordered [...] management. This test was validated by the [facility] [facility]. These laboratories are certified under the Clinical Laboratory Improvement Amendments of 1988 (CLIA-88) as qualified to perfom high complexity laboratory testing. Anabelle Doe DO LAB - MICRO GENERAL ORDERA BLES Final Result LABORATORY [facility] Lab [address] Lab (1st floor, no room number) [place] [address] * Group A Streptococcus PCR Throat Swab (01/01/2025 4:00 AM CDT) Group A strep by PCR Not Detected Not Detected 01/01/2025 4:28 AM CDT LABORATORY Swab STRUCTURE OF ANTERIOR PORTION OF NECK / Unknown Non-blood Collection / Unknown 01/01/2025 4:00 AM CDT 01/01/2025 4:03 AM CDT [facility] LABORATORY - 01/01/2025 4:28 AM CDT The Xpert Xpress Strep A test, performed on the [employer], is a rapid, qualitative in [...] MICRO GENERAL ORDERA BLES Final Result LABORATORY [facility] Care Lab [address] Lab (1st floor, no room number) [place] [address] * EKG 12-lead, tracing only (01/01/2025 3:16 AM CDT) Systolic Blood Pressure mmHg RADIOLOGY RESULTS Diastolic Blood Pressure mmHg RADIOLOGY RESULTS Ventricular Rate 87 BPM RAD IOLOGY RESULTS Atrial Rate 87 BPM RADIOLOG Y RESULTS DE Interval 170 ms RADIOLOG Y RESULTS QRS Duration 82 ms RADIOLO GY RESULTS QT 384 ms RADIOLOGY RESULTS QTc 462 ms RADIOLOGY RESULTS P Cantril 83 degrees RADIOLOGY RESULTS R AXIS 54 degrees RADIOLOGY RESULTS T Cantril 72 degrees RADIOLOGY RESULTS Interpretation ECG Sinus rhythm Minimal voltage criteria for LVH, may be normal variant ( Sokolow-Steen ) Borderline ECG When compared with ECG of 01-Jan-2025 03:01, (unconfirmed) No significant change was found Confirmed by - EMERGENCY ROOM, PHYSICIAN ([id number]), supervising editor trailer FREDDIE BOWER ([id number]) on 01/02/2025 7:09:33 AM [...] testing is available if warranted by ordering NKD080, HCG Quantitative . Blood BLOOD SPECIMEN / Unknown Venipuncture / Unknown 01/01/2025 3:16 AM CDT 01/01/2025 3:22 AM CDT us Anabelle Doe DO LAB - BLOOD ORDERABLES Fin al Result [facility] LABORATORY [facility] [address] Lab (1st floor, no room number) [place] [address] * D dimer quantitative (01/01/2025 3:15 AM CDT) Pathologist [facility] D-Dimer Quantitative 0.33 0.00 - 0.50 ug/mL FEU 01/01/2025 3:41 AM CDT RH LABORATORY Blood BLOOD SPECIMEN / Unknown Venipuncture / Unknown 01/01/2025 3:15 AM CDT 01/01/2025 3:22 AM CDT [facility] LABORATORY - 01/01/2025 3:41 AM CDT This D-dimer assay is intended for use in conjunction with a clinical pretest probability assessment model to exclude pulmonary embolism (PE) and deep venous thrombosis (DVT) in outpatients suspected of PE or DVT. The cut-off value is 0.50 ug/mL FEU. us Anabelle Doe DO LAB - BLOOD ORDERABLES Fin al Result [facility] LABORATORY [facility] [address] [facility] Lab (1st floor, no room number) [place] [address] * (ABNORMAL) CBC with platelets and differential (01/01/2025 3:14 AM CDT) [facility] WBC Count 8.0 4.0 - 11.0 10e3/uL [...] BLOOD ORDERABLES Fin al Result RH LABORATORY [facility] [address] Lab (1st floor, no room number) [place] [address], [facility] * Troponin T, High Sensitivity (01/01/2025 3:14 AM CDT) [facility] Troponin T, High Sensitivity 10 <=14 ng/L [...] - BLOOD ORDERABLES Fin al Result LABORATORY [facility] [address] [facility] Lab (1st floor, no room number) [place] [address], [facility] * (ABNORMAL) Comprehensive metabolic panel (01/01/2025 3:14 AM CDT) [facility] Sodium 141 135 - 145 mmol/L 01/01/2025 [...] BLOOD ORDERABLES Fin al Result RH LABORATORY [facility] [address] Lab (1st floor, no room number) [place] [address], [facility] * EKG 12 lead (01/01/2025 3:01 AM CDT) Systolic Blood Pressure mmHg RADIOLOGY RESULTS Diastolic Blood Pressure mmHg RADIOLOGY RESULTS Ventricular Rate 96 BPM RAD IOLOGY RESULTS Atrial Rate 96 BPM RADIOLOG Y RESULTS DE Interval 180 ms RADIOLOG Y RESULTS QRS Duration 84 ms RADIOLO GY RESULTS QT 352 ms RADIOLOGY RESULTS QTc 444 ms RADIOLOGY RESULTS P Cantril 50 degrees RADIOLOGY RESULTS R AXIS 43 degrees RADIOLOGY RESULTS T Cantril 77 degrees RADIOLOGY RESULTS Interpretation ECG Sinus rhythm Possible Left atrial enlargement Nonspecific ST and T wave abnormality Abnormal ECG No previous ECGs available Confirmed by - EMERGENCY ROOM, PHYSICIAN ([id number]), supervising editor trailer FREDDIE BOWER ([id number]) on 01/02/2025 8:12:26 AM [...] documented as of this encounter Care Teams Photo Engraver Relationship Specialty Start Date End Date [facility], [facility] [address] [place] [address] PCP - General 01/01/25 documented as of this encounter
--- OUTSIDE RECORDS SUMMARY | 2025-01-05 08:26 | XMS_ITS | Clinical Summary ---
Author Organization [facility] Address [address] [place] [id number] Care Team Providers Care Facilities Operator Name Role Phone Clinic, [facility] Primary Care Prov ider Allergies No known active allergies Encounters Date Type Department Care Team Description 01/01/2025 3:03 AM CDT - 01/01/2025 6:22 AM CDT Emergency [facility] [address] [place] [id number] Anabelle Doe E, Chest pain, unspecified type; [...] of2 resultswithin the time period is included. [facility] Troponin T, High Sensitivity 9 <=14 ng/L [...] LAB - BLOOD ORDERABLES Fin al Result [facility] [address] Lab (1st floor, no room number) [place] [address], [facility] * XR Chest 2 Views (01/01/2025 4:14 AM CDT) Anatomical Region Laterality Modality Chest Digital Radiogra phy 01/01/2025 4:14 AM CDT Impressions 01/01/2025 4:16 AM CDT IMPRESSION: Negative chest. Narrative 01/01/2025 4:16 AM CDT EXAM: XR CHEST 2 VIEWS LOCATION: [facility] DATE: 01/01/2025 INDICATION: chest pain COMPARISON: None. Procedure Note Laron Rangel MD - 01/01/2025 EXAM: XR CHEST 2 VIEWS LOCATION: [facility] DATE: 01/01/2025 INDICATION: chest pain COMPARISON: None. IMPRESSION: Negative chest. Anabelle Doe DO [facility] DIAGNOSTIC IMAGING ORD ERABLES Final Result * Influenza A/B, RSV and SARS-CoV2 PCR (COVID-19) Nasopharyngeal (01/01/2025 4:00 AM CDT) Pathologist [facility] Influenza A PCR Negative Negative 01/01/2025 [...] 4:00 AM CDT 01/01/2025 4:03 AM CDT [facility] LABORATORY - 01/01/2025 4:40 AM CDT Testing was performed using the Xpert Xpress CoV2/Flu/RSV Assay on the [employer]Xpert Instrument. This test should be ordered for [...] management. This test was validated by the [facility]. These laboratories are certified under the Clinical Laboratory Improvement Amendments of 1988 (CLIA-88) as qualified to perfom high complexity laboratory testing. Anabelle Sunni [facility] LAB - MICRO GENERAL ORDERA BLES Final Result Performing Organization Address City/[facility]/ZIP Co de Phone Number LABORATORY [facility] [address] Lab (1st floor, no room number) [place] [address] * Group A Streptococcus PCR Throat Swab (01/01/2025 4:00 AM CDT) Group A strep by PCR Not Detected Not Detected 01/01/2025 4:28 AM CDT LABORATORY Swab STRUCTURE OF ANTERIOR PORTION OF NECK / Unknown Non-blood Collection / Unknown 01/01/2025 4:00 AM CDT 01/01/2025 4:03 AM CDT [facility] LABORATORY - 01/01/2025 4:28 AM CDT The Xpert Xpress Strep A test, performed on the GeneMST Instrument Systems, is a rapid, qualitative in [...] Streptococcus pyogenes DNA. Anabelle Sunni Doe DO [facility] - MICRO GENERAL ORDERA BLES Final Result Performing Organization Address City/[facility]/ZIP Co de Phone Number LABORATORY [facility] Lab [address] Lab (1st floor, no room number) [place] [address], [facility] * EKG 12-lead, tracing only (01/01/2025 3:16 AM CDT) Only the most recent of2 resultswithin the time period is included. Systolic Blood Pressure mmHg RADIOLOGY RESULTS Diastolic Blood Pressure mmHg RADIOLOGY RESULTS Ventricular Rate 87 BPM RAD IOLOGY RESULTS Atrial Rate 87 BPM RADIOLOG Y RESULTS NJ Interval 170 ms RADIOLOG Y RESULTS QRS Duration 82 ms RADIOLO GY RESULTS QT 384 ms RADIOLOGY RESULTS QTc 462 ms RADIOLOGY RESULTS P [place] 83 degrees RADIOLOGY RESULTS R AXIS 54 degrees RADIOLOGY RESULTS T [place] 72 degrees RADIOLOGY RESULTS Interpretation ECG Sinus rhythm Minimal voltage criteria for LVH, may be normal variant ( Sokolow-Steen ) Borderline ECG When compared with ECG of 01-Jan-2025 03:01, (unconfirmed) No significant change was found Confirmed by - EMERGENCY ROOM, PHYSICIAN ([id number]), multimedia editor FREDDIE BOWER ([id number]) on 01/02/2025 7:09:33 [...] testing is available if warranted by ordering [id number], HCG Quantitative . Blood BLOOD SPECIMEN / Unknown Venipuncture / Unknown 01/01/2025 3:16 AM CDT 01/01/2025 3:22 AM CDT Anabelle Doe DO LAB - BLOOD ORDERABLES Fin al Result [facility] LABORATORY [facility] [address] Lab (1st floor, no room number) [place] [address] * D dimer quantitative (01/01/2025 3:15 [...] BLOOD ORDERABLES Fin al Result [facility] LABORATORY [facility] [address] [facility] Lab (1st floor, no room number) [place] [address] * (ABNORMAL) CBC with platelets and differential (01/01/2025 3:14 AM CDT) Pathologist [facility] WBC Count 8.0 4.0 - 11.0 [...] - BLOOD ORDERABLES Fin al Result LABORATORY [facility] [address] Lab (1st floor, no room number) [place] [address], [facility] * (ABNORMAL) Comprehensive metabolic [...] - BLOOD ORDERABLES Fin al Result LABORATORY [facility] [address] Lab (1st floor, no room number) [place] [address], [facility] from Last 3 Months Care Teams Facilities Operator Relationship Specialty Start Date End Date [facility], [facility] [address] [place] [address] PCP - General 01/01/25
--- OUTSIDE RECORDS SUMMARY | 2025-01-05 08:26 | XMS_ITS | Encounter Summary ---
Author Organization [facility] Address [address] [place] [address] Care Team Providers Care Gear Coding Machine Operator Name Role Phone [facility], [facility] Primary Care Prov ider Encounter Details [...] documented as of this encounter Care Teams Gear Coding Machine Operator Relationship Specialty Start Date End Date [facility], [address] [address] PCP - General 01/01/25 documented as of this encounter
--- NOTE | 2025-01-05 08:29 | ED_ITS ---
HPI - General Adult General Date Seen: 01/05/25 Chief complaint: Dental/Oral/Mouth Injury/Pain Stated complaint: dental emergency Time Seen by Provider: 01/05/25 08:07 History of Present Illness HPI narrative: Patient is a 44-year-old woman here with dental pain. She has pain in the left lower jaw, she knows she has a cavity there but she isn't exactly sure which tooth is hurting at this point. She has had pain for several days. She tells me that she made an appointment with a dentist but it is a few weeks out. She has a history of gastric bypass so she does not take NSAIDs at home. She has not had facial swelling or fevers. Related Data Home Medications ?Medication ?Instructions ?Recorded ?Confirmed diazepam 10 mg tablet 10 mg PO DAILY PRN 05/29/24 01/05/25 gabapentin 300 mg capsule 900 mg PO TID 05/29/24 01/05/25 lamotrigine 100 mg tablet 100 mg PO DAILY 05/29/24 01/05/25 (Lamictal) quetiapine 200 mg tablet 200 mg PO QHS 05/29/24 01/05/25 tizanidine 2 mg capsule 2 mg PO TID PRN 05/29/24 01/05/25 tretinoin 0.1 % topical cream 1 applic topical QHS 05/29/24 01/05/25 (Retin-A) dextroamphetamine-amphetamine ER 1 cap PO QAM 01/05/25 01/05/25 10 mg 24hr capsule,extend release losartan 50 mg tablet 50 mg PO DAILY 01/05/25 01/05/25 Allergies Allergy/AdvReac Type Severity Reaction Status Date / Time No Known Drug Allergies Allergy Verified 01/05/25 08:00 [facility] Social History Smoking Status: Never smoker Do you use any of these nicotine containing products: Vaping Products Second hand tobacco smoke exposure: No How often do you have a drink containing alcohol: never AUDIT-C Alcohol total score: 0 Non-prescribed substance use: marijuana (any form) service: No Exam Narrative: Exam Narrative: Vital signs reviewed. In general, alert, nontoxic woman. She is holding the side of her face. Head: Normocephalic, atraumatic. Eyes: Sclera clear. ENT: She does have a large cavity in 1 of her molars on the left. There is no evidence of surrounding abscess. She is missing several teeth on the right. Dentition in general is somewhat marginal. Neck: Supple without adenopathy. Const: Vital Signs, click to edit/add: Vital Signs - 24 hr 01/05/25 08:00 Temperature 98.1 F Pulse Rate [Pulse Oximeter] 61 Respiratory Rate 18 Blood Pressure [Ri ght Upper Arm] 187/112 H Pulse Oximetry 99 Oxygen Delivery Me thod Room Air Course Course ED Course: I gave her a shot of Toradol here to help with pain. Will put her on some amoxicillin, recommended that she call her dental clinic and see if they can get her in sooner given that she is having acute pain. Return for facial redness or swelling, fevers, or other worsening. Vital Signs Vital signs: Initial Vital Signs Temperature 98.1 F 01/05/25 08:00 Temperature Source Temporal Artery Scan 01/05/25 08:00 Pulse Rate 61 01/05/25 08:00 Respiratory Rate 18 01/05/25 08:00 Blood Pressure 187/112 H 01/05/25 08:00 Blood Pressure Mean 137 H 01/05/25 08:00 Blood Pressure Position Sitting 01/05/25 08:00 Pulse Oximetry 99 01/05/25 08:00 Oxygen Delivery Method Room Air 01/05/25 08:00 Vital Signs Temperature 98.1 F 01/05/25 08:00 Pulse Rate 61 01/05/25 08:00 Respiratory Rate 18 01/05/25 08:00 Blood Pressure 187/112 H 01/05/25 08:00 Pulse Oximetry 99 01/05/25 08:00 Oxygen Delivery Method Room Air 01/05/25 08:00 Temperature 98.1 F 01/05/25 08:00 Pulse Rate 61 01/05/25 08:00 Respiratory Rate 18 01/05/25 08:00 Blood Pressure 187/112 H 01/05/25 08:00 Pulse Oximetry 99 01/05/25 08:00 Oxygen Delivery Method Room Air 01/05/25 08:00 Medications Administered Medications: Discontinued Medications Generic Name Dose Route Start Last Admin Trade Name Freq PRN Reason Stop Dose Admin Ketorolac Tromethamine 30 mg 01/05/25 08:13 01/05/25 08:25 Ketorolac 30 Mg/Ml Inj IM 01/05/25 08:14 30 mg ONCE ONE Administration Discharge Plan Discharge Clinical Impression: Toothache Patient Disposition: Home, Self-Care Condition: Stable Instructions: Toothache (ED) Additional Instructions: Amoxicillin as prescribed. Tylenol 1000 mg 3 times daily. Ice. Dental follow- up as planned, I would recommend calling the dentist for you have your appointment, often if you are having acute pain they can get you in sooner. If you developed facial swelling, fevers, or other worsening, return to the emergency department at any time. Prescriptions: No Action quetiapine 200 mg tablet 200 mg PO QHS tizanidine 2 mg capsule 2 mg PO TID PRN tretinoin [Retin-A] 0.1 % cream 1 applic topical QHS diazepam 10 mg tablet 10 mg PO DAILY PRN lamotrigine [Lamictal] 100 mg tablet 100 mg PO DAILY gabapentin 300 mg capsule 900 mg PO TID dextroamphetamine-amphetamine 10 mg capsule,extended release 24hr 1 cap PO QAM losartan 50 mg tablet 50 mg PO DAILY Follow Up/Referrals: Venkat Hall MD [Primary Care Provider] - Stand Alone Forms: [email or web address] Instructions
== END 2025-01-05 08:33 | disposition home or self-care (01) ==
LOC: ED 08:22
PROVIDERS: Emergency Provider Emergency Medicine; PCP Family Medicine
DX: K08.89 Other specified disorders of teeth and supporting structures (principal)
CPT/HCPCS: 96372; 99283; J1885